=== PATIENT | male | born 1965 | race Caucasian/White ===

== ENCOUNTER 2018-05-24 17:09 | Emergency (ER) | payer OTHER, SELFPAY ==
[2018-05-24 17:28] VITALS: BP 188/105; PULSE 94; RESP 28; TEMP 37; O2SAT 96
--- NOTE | 2018-05-24 17:51 | DI.RAD_ITS ---
SYMPTOMS/DIAGNOSIS: BACK PAIN LUMBAR SPINE: AP, lateral and bilateral oblique views. There are five lumbar type vertebral bodies. There is normal alignment. No spondylolysis or spondylolisthesis is seen. Endplate osteophytes are present throughout the lumbar spine. The disc heights are well maintained. The bones are normally mineralized. IMPRESSION: No acute abnormality. Mild degenerative changes of the lumbar spine. THORACIC SPINE: AP and lateral views. The upper thoracic spine is not well visualized on the lateral view. It appears unremarkable on the AP view. There is normal alignment of the thoracic spine. Endplate osteophytes are present throughout the thoracic spine. No acute fractures or subluxations are seen. The paraspinal lines are unremarkable. IMPRESSION: No acute abnormality.
[2018-05-24] MEDS: Cyclobenzaprine 10 MG TAB PO (18:17)
--- NOTE | 2018-05-24 19:16 | NUR.NOTE ---
Change of shift report given to Netta Carpio RN and Daniel Shahid RN.Nursing Note:
--- NOTE | 2018-05-24 19:25 | ED.GENADUL_ITS ---
Discharge Plan Disposition Patient Disposition: HOME Condition: Improving Discharge Details Chief Complaint: Nk/Back Pain Clinical Impression: Back pain Primary Care Provider: Tania Salcedo ED Provider: Kevin Pollock Home Meds and New Rx's Prescriptions: New cyclobenzaprine 10 mg tablet 10 mg PO TID PRN (Reason: muscle spasm) Qty: 10 RF: 0 Millipred DP 5 mg (48 tabs) tablets,dose pack 5 mg PO .qd Qty: 48 RF: 0 No Action ibuprofen [Advil] 100 MG tablet,chewable 200 mg PO Q4H PRN RF: 0 aspirin [Aspirin Low-Strength] 81 MG tablet,chewable 81 mg PO DAILY RF: 0 omeprazole 20 MG capsule,delayed release(DR/EC) 20 mg PO DAILY Qty: 90 RF: 3 amlodipine [Norvasc] 2.5 MG tablet 2.5 mg PO BID Qty: 180 RF: 0 ibuprofen 800 MG tablet 800 mg PO TID Qty: 30 RF: 0 doxycycline hyclate [Doryx] 100 MG tablet,delayed release (DR/EC) 100 mg PO BID Qty: 14 RF: 0 albuterol sulfate [ProAir HFA] 200 PUFF HFA aerosol inhaler Inhalation Q4H PRN PRNQty: 2 RF: 0 metronidazole 500 MG tablet 500 mg PO BID Qty: 20 RF: 0 Discharge Instructions Instructions: Back Pain (ED) Additional Instructions: 1. Ice sore areas frequently. 2. Acetaminophen 1000 mg every 4 hours as needed for pain up to 5 times per day. 3. Cyclobenzaprine 10 mg 3 times a day as needed for muscle spasm. 4. Medrol Dosepak as directed. 5. Activity as tolerated Return for worsening pain, change in bowel or bladder habits, fever, abdominal pain, or any other concerns. Medical Decision Making 53-year-old gentleman with a history of previous trauma associated back pain presents with 1 week of worsening symptoms localized to his left paraspinal region and radiating towards his left posterior chest. Symptoms subjectively similar to remote pain associated with a trauma and he reports milder episodes in the interim. Nonfocal exam except for focal soft tissue paraspinal tenderness on the left side with no evidence of neuromuscular compromise distally. Treated in the ED with cyclobenzaprine and Medrol. Because of his age and new history of back pain, thoracic and lumbar x-rays were ordered which were nondiagnostic. Discharge home with a Medrol Dosepak and a prescription for limited cyclobenzaprine. Given usual and customary return instructions. Medical Records Medical records reviewed: Yes I reviewed the patient's medical records. Imaging Data Radiologic Study: Attestation: I personally reviewed and interpreted this imaging study as follows: Imaging: X-Ray My impression: Lumbar and thoracic spine x-rays negative for acute fracture or subluxation. Normal degenerative. Images reviewed independently and contemporaneously by myself. 53-year-old gentleman with a past medical history which includes remote back pain from trauma. He presents with 1 week of worsening left-sided paraspinal back pain which is worsened by positional change and palpation. First noted symptoms while working and has been intimately treating his pain with ibuprofen/acetaminophen. Yesterday, he had severe atraumatic worsening of his pain and today was unable to stand up without severe discomfort. His pain is localized to the left paraspinal region and radiates towards his chest wall. He denies radiation or weakness distally. Denies saddle anesthesia, change in bowel habits, or urinary incontinence. Symptoms subjectively similar to remote pain 20 years ago associated with a traumatic injury. He reports occasional flares of pain in the same region which have not been as severe. Also denies abdominal pain melena/hematochezia, or urinary symptoms. HPI General Date/Time Provider Initiated Documentation: 05/24/18 17:50 . Related Data Home Medications Medication Instructions Recorded Confirmed ibuprofen [Advil] 200 mg PO Q4H PRN tab-cap 11/24/13 03/23/16 aspirin [Aspirin Low-Strength] 81 mg PO DAILY tab-cap 01/03/15 03/23/16 ibuprofen 800 mg PO TID #30 tablet 01/06/15 03/23/16 amlodipine [Norvasc] 2.5 mg PO BID #180 tab-cap 02/02/15 omeprazole 20 mg PO DAILY #90 tab-cap 02/02/15 albuterol sulfate [ProAir HFA] 0 gm INHALATION Q4H PRN PRN #2 inh 04/08/15 03/23/16 doxycycline hyclate [Doryx] 100 mg PO BID #14 tabcr 04/08/15 metronidazole 500 mg PO BID #20 tab 03/23/16 cyclobenzaprine 10 mg PO TID PRN #10 tab 01/06/19 prednisolone [Millipred DP] 5 mg PO .qd #48 dose pk 05/24/18 Previous Rx's Medication Instructions Recorded ibuprofen 800 mg PO TID #30 tablet 01/06/15 albuterol sulfate [ProAir HFA] 0 gm INHALATION Q4H PRN PRN #2 inh 04/08/15 doxycycline hyclate [Doryx] 100 mg PO BID #14 tabcr 04/08/15 metronidazole 500 mg PO BID #20 tab 03/23/16 cyclobenzaprine 10 mg PO TID PRN #10 tab 05/24/18 prednisolone [Millipred DP] 5 mg PO .qd #48 dose pk 05/24/18 Allergies Allergy/AdvReac Type Severity Reaction Status Date / Time THC Allergy Severe ANAPHALAXIS Uncoded 05/24/18 17:42 HEMP Allergy Intermediate HIVES Uncoded 05/24/18 17:42 General Stated Complaint: Nk/Back Pain VANESSA: 4 Review of Systems Review of Systems All systems reviewed & are unremarkable except as noted in HPI and below Constitutional Denies excessive sweating and Denies fatigue Eyes Denies change in vision ENT Reports as per HPI, Denies dysphagia and Denies dizziness Cardiovascular Reports as per HPI, Denies chest pain and Denies dyspnea Respiratory Denies dyspnea Gastrointestinal Denies dysphagia Genitourinary Reports as per HPI, Denies oliguria and Denies difficulty urinating Musculoskeletal Reports as per HPI, Reports back pain (Left lumbar paraspinal radiating towards the chest wall) and Denies muscle weakness Neurologic Denies confusion and Denies dizziness Comments: No distal left leg numbness or weakness Psychiatric Reports as per HPI, Denies anxiety, Denies change in appetite and Denies confusion Endocrine Denies excessive sweating and Denies fatigue Hematologic/Lymphatic Denies easy bleeding and Denies easy bruising PFSH Medical History Insomnia Snoring Family History Mother Myocardial infarction Father Diabetes Other Heart disease Social History Smoking/Tobacco Use Status: Current every day Exam Const General: cooperative, comfortable and not in acute distress Orientation: alert and awake HENGA Head: normocephalic and atraumatic Eyes Conjunctivae: conjunctivae normal Sclera: sclerae normal Neck Neck: normal visual inspection and full ROM Resp Effort & Inspection: normal respiratory effort Auscultation: clear to auscultation bilaterally, no rales, no rhonchi and no wheezes Cardio Rate: regular rate Rhythm: regular rhythm Heart Sounds: S1 normal and S2 normal GI Palpation: soft, not rigid and nontender Back/Spine/Pelvis Back: back tenderness (No midline tenderness. Left paraspinal soft tissue.) Thoracic/Lumbar Spine: thoracic and lumbar spine normal to inspection, paraspinal tenderness (Left. Palpation reproduces subjective pain) and No lumbar spinal tenderness Skin Lesions: no lesions Rashes: no rashes Neuro General: alert and awake Speech: speech normal Motor: muscle tone normal throughout Extrem General: no edema Psych Mental Status: mental status grossly normal Speech and Movement: speech and movement normal Course Vital Signs Temperature 98.6 F 05/24/18 17:28 Pulse 94 H 05/24/18 17:28 Respiratory Rate 28 H 05/24/18 17:28 Blood Pressure 188/105 H 05/24/18 17:28 Pulse Oximetry 96 05/24/18 17:28 Temperature 98.6 F 05/24/18 17:28 Temperature Source Temporal Artery Scan 05/24/18 17:28 Pulse 94 H 05/24/18 17:28 Respiratory Rate 28 H 05/24/18 17:28 Respiratory Effort 05/24/18 17:50 Blood Pressure 188/105 H 05/24/18 17:28 Blood Pressure Position Sitting 05/24/18 17:28 Pulse Oximetry 96 05/24/18 17:28 Oxygen Delivery Method Room Air 05/24/18 17:28 Oxygen Flow Rate 0 05/24/18 17:28 Pain Level 10 05/24/18 17:44
--- NOTE | 2018-05-24 19:36 | DI.VRAD_ITS ---
EXAM: XR Thoracic Spine, 3 Views EXAM DATE/TIME: 05/24/2018 7:12 PM CLINICAL HISTORY: 53 years old, male; Pain; Pain in thoracic spine; Other: N/a; Patient HX: Low/mid back pain TECHNIQUE: XR of the thoracic spine, 3 views. COMPARISON: No relevant prior studies available. FINDINGS: Vertebrae: Hypertrophic degenerative changes in the thoracic spine with no fracture or subluxation. Upper thoracic spine not well-seen on the lateral view, normal on frontal imaging. Soft tissues: Normal. IMPRESSION: Hypertrophic degenerative changes in the thoracic spine with no fracture or subluxation. Dictated and Authenticated by: Sharri Lindsey MD. Ordering:NATHANIEL Brown MD
--- NOTE | 2018-05-24 19:37 | DI.VRAD_ITS ---
EXAM: XR Lumbar Spine, 4 or 5 Views EXAM DATE/TIME: 05/24/2018 5:53 PM CLINICAL HISTORY: 53 years old, male; Pain; Low back pain TECHNIQUE: XR of the lumbar spine, 4 or 5 views. COMPARISON: CT ABD PELVIS WO CONTRAST 03/23/2016 2:24 PM FINDINGS: Vertebrae: No acute fracture or subluxation. Hypertrophic degenerative changes in the lumbar spine. Mild disc space narrowing, L4-L5 and L5-S1. Soft tissues: Aortic atherosclerosis. IMPRESSION: No acute bony pathology. Dictated and Authenticated by: Sharri Lindsey MD. Ordering:NATHANIEL Brown MD
== END 2018-05-24 19:56 | disposition home or self-care (01) ==
PROVIDERS: Emergency Provider Emergency Medicine; PCP Nurse Practitioner
DX: M62.830 Muscle spasm of back (principal); M54.9 Dorsalgia, unspecified
CPT/HCPCS: 99284; 72072; 72110; 99283; J3490

== ENCOUNTER 2019-03-19 16:34 | Emergency (ER) | payer OTHER, SELFPAY ==
[2019-03-19] VITALS (13 sets, daily range): BP systolic 148–174; BP diastolic 78–112; PULSE 91–115; RESP 4–27; TEMP 36.5; O2SAT 92–97
--- NOTE | 2019-03-19 17:01 | ED.GENADUL_ITS ---
Discharge Plan Disposition Patient Disposition: HOME Condition: Improving Discharge Details Chief Complaint: Chest Pain Clinical Impression: Bronchitis, Dizziness, Accelerated hypertension, Atypical chest pain Primary Care Provider: None,None ED Provider: Gia Lamas Home Meds and New Rx's Prescriptions: New hydrochlorothiazide 12.5 mg tablet 12.5 mg PO DAILY 30 Days Qty: 30 RF: 0 prednisone 20 mg tablet See Rx Instructions .ROUTE .COMPLEX Qty: 12 RF: 0 doxycycline hyclate 100 mg tablet 100 mg PO BID 7 Days Qty: 14 RF: 0 albuterol sulfate 2.5 mg /3 mL (0.083 %) solution for nebulization 2.5 mg IH QID PRN (Reason: shortness of breath or wheezing) Qty: 75 RF: 0 Continued aspirin [Aspirin Low-Strength] 81 MG tablet,chewable 325 mg PO DAILY RF: 0 Discharge Instructions Instructions: Chest Pain (ED), Acute Bronchitis (ED), Hypertension (ED), Dizziness (ED) Additional Instructions: Use the albuterol inhaler as needed and directed. Use your albuterol solution and nebulizer as needed and directed. Take the steroids until finished. Take the blood pressure medication as directed. If your symptoms do not improve or worsen including fever, worsening cough and chest congestion, start the antibiotics. You will receive a call from care management regarding a follow-up appointment with your primary care doctor. Return immediately to the emergency department if you develop any worsening or new concerning symptoms. Discharge Data Discharge Physician: Gia Lamas Medical Decision Making 1650 -- 54-year-old male with history of anxiety, panic attacks, hypertension presenting with 1 week of intermittent elevated blood pressure, lightheadedness, shortness of breath and chest pain is worse with exertion. He states his BP was higher today than usual 200s over 100s. He states he had taken hydrochlorothiazide in the past but not recently. He complains of only some dizziness at present but denies any chest pain or shortness of breath. BP on arrival 174/112. Heart rate 115. Afebrile. Oxygen saturation 96% on room air. He appears nontoxic. He has scattered wheezing in the lower bases. EKG on arrival notes a rate of 105, sinus no acute ST ischemic changes. Differential diagnosis includes bronchitis, COPD, pneumonia, ACS. History presentation not consistent with dissection or PE, but considering some radiation of chest pain to back and smoking history, will obtain a CT chest. Will check screening labs and give DuoNeb and Solu-Medrol. 1830 --labs reviewed. White blood cell count 13. Remainder of labs unremarkable with negative troponin, normal BNP and electrolytes. Patient states he feels better, dizziness improved. BP improved to 152/77. Will give additional IV fluids. CT chest pending. 1904 --CT chest does not see a pulmonary embolism in the main pulmonary arteries but suboptimal bolus for full evaluation. No dissection or evidence of pneumonia. Discussed with patient that we can repeat CT at this time for further evaluation but he would rather go home as he does not feel that he has a pulmonary embolism. The risks of and disability were explained and he fully understands demonstrates capacity make decisions. He has a cough with green sputum and chest congestion with wheezing so suspect his main process is likely infectious associated with dehydration. Patient is requesting to go home. We will send home with albuterol inhaler, solution for his nebulizer at home, prednisone as well as to restart his hydrochlorothiazide which she had been taking last year. He denies any headache, blurry vision and had no focal deficits. He was also given a prescription for doxycycline if he had worsening symptoms or development of fever. He was placed on care management list to establish care and a follow-up appointment in 1 to 2 weeks. He was advised to return here immediately with any worsening or new concerning symptoms. Medical Records Medical records reviewed: Yes I reviewed the patient's medical records. Imaging Data Radiologic Study: Radiologist's impression: CT Angiography Chest With Contrast Exam date and time: 03/19/2019 6:22 PM Clinical history: 54 years old, male; Radiating; Patient HX: Chest pain w/ radiation to back; Additional info: R/O dissection/pe, pneumonia TECHNIQUE: Imaging protocol: Computed tomographic angiography of the chest with intravenous contrast. 3D rendering: MIP reconstructed images were created and reviewed. COMPARISON: CR CHEST 2 VIEWS PA,LAT 04/08/2015 4:02 PM FINDINGS: Pulmonary arteries: No pulmonary embolus in the main pulmonary arteries.. Aorta: No aneurysm of the aorta. No dissection of the aorta. Other veins: Suboptimal bolus for evaluation of pulmonary embolus. Contrast is primarily in the aortic arch and pulmonary veins. Lungs: Unremarkable. No consolidation. No masses. Pleural space: Unremarkable. No pneumothorax. No pleural effusion. Heart: Unremarkable. No cardiomegaly. No pericardial effusion. Lymph nodes: Unremarkable. No enlarged lymph nodes. Bones/joints: Unremarkable. No acute fracture. Soft tissues: Unremarkable. IMPRESSION: 1. Suboptimal bolus for evaluation of pulmonary embolus. Contrast is primarily in the aortic arch and pulmonary veins. 2. No pulmonary embolus in the main pulmonary arteries.. 3. No aneurysm of the aorta. 4. No dissection of the aorta. Lab Data Lab results reviewed: Yes I reviewed the patient's lab results. ECG Data Attestation: I personally reviewed and interpreted this ECG (s) as follows: Interpretation: Rate of 105, sinus with no acute ST elevation or depression. GA 198. QTc 455. QRS 104. HPI General Mode of arrival: ambulatory . Date/Time Provider Initiated Documentation: 03/19/19 16:34 . Limitations to Documentation: no limitations . Information obtained by: patient . HPI Narrative: Patient is a 54-year-old male with history of anxiety, panic attacks, hypertension, CVA and possible asthma who presents for intermittent lightheadedness, shortness of breath, chest pain and high blood pressure for the past week. He states his symptoms started after he did a lot of heavy outside work last weekend. He states with all that exertion, he felt lightheaded with substernal and right-sided chest pain and shortness of breath. He states the symptoms have mainly returned in the past week with exertion. He describes the chest pain is aching and 7/10 at its worst. He denies any chest pain or shortness of breath at this time. He states the dizziness is worse with movement which increases his heart rate. He states he is also had a dry cough with some chest congestion and green sputum. He states he has been eating normally and denies any fever, leg pain or swelling, recent travel or recent surgeries. Related Data Home Medications Medication Instructions Recorded Confirmed aspirin [Aspirin Low-Strength] 325 mg PO DAILY tab-cap 01/03/15 03/19/19 albuterol sulfate 2.5 mg IH QID PRN #75 ml 03/19/19 doxycycline hyclate 100 mg PO BID 7 Days #14 tab 03/19/19 hydrochlorothiazide 12.5 mg PO DAILY 30 Days #30 tab 03/19/19 prednisone See Rx Instructions .ROUTE 03/19/19 .COMPLEX #12 tab Previous Rx's Medication Instructions Recorded albuterol sulfate 2.5 mg IH QID PRN #75 ml 03/19/19 doxycycline hyclate 100 mg PO BID 7 Days #14 tab 03/19/19 hydrochlorothiazide 12.5 mg PO DAILY 30 Days #30 tab 03/19/19 prednisone See Rx Instructions .ROUTE 03/19/19 .COMPLEX #12 tab Allergies Allergy/AdvReac Type Severity Reaction Status Date / Time THC Allergy Severe ANAPHALAXIS Uncoded 03/19/19 16:51 HEMP Allergy Intermediate HIVES Uncoded 03/19/19 16:51 General Stated Complaint: Chest Pain VANESSA: 2 Review of Systems All systems reviewed & are unremarkable except as noted in HPI and below Constitutional Constitutional: Reports as per HPI, Denies chills and Denies fever(s) Eyes Eyes: Denies blurry vision ENT Ears, Nose, Mouth, and Throat: Reports dizziness, Denies sore throat and Denies throat swelling Cardiovascular Cardiovascular: Reports chest pain and Reports dyspnea Respiratory Respiratory: Reports cough and Reports dyspnea Gastrointestinal Gastrointestinal: Denies abdominal pain, Denies diarrhea and Denies vomiting Genitourinary Genitourinary: Denies hematuria and Denies dysuria Musculoskeletal Musculoskeletal: Denies back pain and Denies numbness Integumentary/Breasts Skin/Breast: Denies lesions and Denies rash Neurologic Neurologic: Reports dizziness, Denies focal weakness and Denies numbness Allergic/Immunologic Allergic/Immunologic: Denies throat swelling [facility] Medical History Anxiety (Chronic) Cerebral thrombosis (Acute 11/29/13) GERD (gastroesophageal reflux disease) (Acute 12/21/14) Hypertension (Acute 12/21/14) Insomnia Obesity (Acute 12/21/14) Panic attack (Acute) Snoring Surgical History H/O hand surgery (Acute) History of oral surgery (Acute) 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 Family History Mother Myocardial infarction Father Diabetes Other Heart disease Social History Smoking/Tobacco Use Status: Current every day Tobacco Type: cigarettes Smoking packs per day: 2 Smoking cigarettes per day: 40.0 Alcohol Intake: never Drug use: Never Do you feel safe in your relationship?: Yes Exam Const General: cooperative and no acute distress Nutritional Appearance: obese morbidly obese [facility] Head: normal to inspection Face and sinus: normal facial exam Eyes General: appearance normal, both eyes and all related structures Pupils: PERRL EOM: EOM intact bilaterally Neck Neck: normal visual inspection and No submandibular swelling Lymphatic: no lymphadenopathy noted Chest Chest: normal inspection of the chest and no tenderness Resp Effort & Inspection: normal respiratory effort and able to speak in complete sentences Auscultation: wheezes scattered wheezes (at bases b/l, more on R side) Cardio Rate: regular rate Rhythm: regular rhythm GI Inspection: normal to inspection and obesity Palpation: soft, not firm, not rigid and nontender Auscultation: normal bowel sounds Back/Spine/Pelvis Pelvis: no pain with anterior-posterior compression Skin General skin exam: no rashes or lesions noted Neuro General: alert, awake and oriented x3 Cognition: normal cognition Speech: speech normal Motor: muscle tone normal throughout Sensory Exam: no sensory deficits noted Extrem General: normal to inspection, full ROM, normal capillary refill, no calf tenderness bilaterally and no edema Psych Appearance: grossly normal Mental Status: mental status grossly normal Speech and Movement: speech and movement normal Affect: normal affect Course Vital Signs Vital signs: Vital Signs Pulse 115 H 03/19/19 16:38 Respiratory Rate 18 03/19/19 16:38 Blood Pressure 174/112 H 03/19/19 16:38 Pulse Oximetry 96 03/19/19 16:38 Temperature Source Temporal Artery Scan 03/19/19 16:38 Pulse 115 H 03/19/19 16:38 Respiratory Rate 20 03/19/19 16:43 Respiratory Effort 03/19/19 16:43 Respiratory Depth Normal 03/19/19 16:43 Respiratory Pattern Normal 03/19/19 16:43 Blood Pressure 174/112 H 03/19/19 16:38 Blood Pressure Position Sitting 03/19/19 16:38 Pulse Oximetry 96 03/19/19 16:38 Oxygen Delivery Method Room Air 03/19/19 16:38 Oxygen Flow Rate 0 03/19/19 16:38 Pain Level 7 03/19/19 16:43
--- NOTE | 2019-03-19 17:19 | DI.CT_ITS ---
EXAM: CT CHEST PE CTA CLINICAL HISTORY: chest pain w/ radiation to back, r/o dissection/PE TECHNIQUE: After IV contrast. The contrast bolus timing is suboptimal. Axial CT angiography was performed with multi-slice acquisition and multi-planar and/or 3D reconstruc tions. COMPARISON: ABD PELVIS WO CONTRAST from 03/23/2016 FINDINGS: The pulmonary arteries are suboptimally opacified. No large central pulmonary emboli are seen. There are no pleural or pericardial effusions or evidence of an infiltrate. There is no pneumothorax or th oracic compression fracture. Prominent osteophytes are noted in the thoracic spine. Coronary artery c alcifications are seen. IMPRESSION: Suboptimal contrast bolus timing. No large central pulmonary artery emboli are seen. There is no evid ence of aortic dissection.
[2019-03-19] MEDS: Albuterol/Ipratropium 3 ML UPD VIAL UPD (17:27)
[2019-03-19] MEDS: methylPREDNISolone SUCC 125 MG VIAL IVP (17:27)
[2019-03-19] MEDS: Normal Saline 250 ML IV (17:34)
[2019-03-19 17:51] LABS: ALT 58 U/L (16-63); AST 27 U/L (15-37); Albumin 3.8 g/dL (3.4-5.0); Alkaline Phosphatase 93 U/L (46-116); BUN 12 mg/dL (7-18); Bilirubin, Total 0.4 mg/dL (0.2-1.0); CREATININE 0.96 mg/dL (0.70-1.30); Calcium 8.9 mg/dL (8.5-10.1); Chloride 103 mmol/L (98-107); Glucose 162 mg/dL (70-100); Magnesium 2.1 mg/dL (1.8-2.4); NT-proBNP 59 pg/mL; Potassium 3.7 mmol/L (3.5-5.1); Sodium 139 mmol/L (136-145); Total Protein 7.8 g/dL (6.4-8.2)
[2019-03-19 17:55] LABS: Troponin I < 0.05 ng/mL (0.00-0.06)
[2019-03-19 18:07] LABS: Abs Immature Grans 0.04 k/cumm (0.0-0.09); Absolute Basophil Count 0.04 k/cumm (0.0-0.2); Absolute Lymphocyte Count 2.49 k/cumm (1.2-3.4); Absolute Monocyte Count 0.95 k/cumm (0.11-0.7); Absolute Neutrophil Count 9.57 k/cumm (1.2-6.7); Basophils % 0.3; Eosinophils % 0.5; HCT 49.3 % (40.0-50.0); HGB 17.2 g/dL (13.5-17.5); Immature Grans % 0.3; Lymphocytes % 18.9; Mean Corp. HGB Concentration 34.9 g/dL (32.0-36.0); Mean Corpuscular Hemoglobin 30.3 pg (27.0-33.0); Mean Corpuscular Volume 86.8 fL (80-95); Mean Platelet Volume 10.2 fL (8.0-11.0); Monocytes % 7.2; Neutrophils % 72.8; Platelet Count 288 x1000/uL (130-400); RBC 5.68 m/cumm (4.50-6.00); RBC Distribution Width 13.5 % (11.8-14.1); White Blood Cell Count 13.15 k/cumm (4.4-10.8)
[2019-03-19 18:12] LABS: Absolute Eosinophil Count 0.07 k/cumm (0.0-0.7)
[2019-03-19] MEDS: Omnipaque 350 MG/ML 100 ML BTL IJ (18:14)
--- NOTE | 2019-03-19 18:57 | DI.VRAD_ITS ---
PROCEDURE INFORMATION: Exam: CT Angiography Chest With Contrast Exam date and time: 03/19/2019 6:22 PM Clinical history: 54 years old, male; Radiating; Patient HX: Chest pain w/ radiation to back; Additional info: R/O dissection/pe, pneumonia TECHNIQUE: Imaging protocol: Computed tomographic angiography of the chest with intravenous contrast. 3D rendering: MIP reconstructed images were created and reviewed. COMPARISON: CR CHEST 2 VIEWS PA,LAT 04/08/2015 4:02 PM FINDINGS: Pulmonary arteries: No pulmonary embolus in the main pulmonary arteries.. Aorta: No aneurysm of the aorta. No dissection of the aorta. Other veins: Suboptimal bolus for evaluation of pulmonary embolus. Contrast is primarily in the aortic arch and pulmonary veins. Lungs: Unremarkable. No consolidation. No masses. Pleural space: Unremarkable. No pneumothorax. No pleural effusion. Heart: Unremarkable. No cardiomegaly. No pericardial effusion. Lymph nodes: Unremarkable. No enlarged lymph nodes. Bones/joints: Unremarkable. No acute fracture. Soft tissues: Unremarkable. IMPRESSION: 1. Suboptimal bolus for evaluation of pulmonary embolus. Contrast is primarily in the aortic arch and pulmonary veins. 2. No pulmonary embolus in the main pulmonary arteries.. 3. No aneurysm of the aorta. 4. No dissection of the aorta. Dictated and Authenticated by: Xiomara Quarles MD. Ordering:DIANA Nielsen MD
[2019-03-19] MEDS: Albuterol HFA 8 GM 60 PUFF INH IH (20:07)
--- NOTE | 2019-03-19 20:13 | NUR.NOTE ---
IV removed. Discharge instructions reviewed with verbal understanding. aware to f/u with pcp as needed. Scripts given. ambulated to exit with steady gait.
== END 2019-03-19 20:15 | disposition home or self-care (01) ==
PROVIDERS: Emergency Provider Physician Assistant
DX: J20.9 Acute bronchitis, unspecified (principal); R42 Dizziness and giddiness; R07.9 Chest pain, unspecified; I10 Essential (primary) hypertension
CPT/HCPCS: 36415; 71275; 80053; 93005; 94640; 96361; 96374; 99285; 83735; 83880; 84484; 85025; 93010; J2930; J3490; J7620

== ENCOUNTER 2020-08-30 21:40 | Emergency (ER) | payer BC, SELFPAY ==
[2020-08-30] VITALS (9 sets, daily range): BP systolic 131–188; BP diastolic 77–100; PULSE 101–117; RESP 18–23; TEMP 36.8; O2SAT 94–96
--- NOTE | 2020-08-30 21:30 | RT.EKG_ITS ---
APPROVED REPORT Exam: Resting ECG Patient Location: E HR:121 bpm ECG Measurements Heart Rate 121 AXIS OH 150 P -10 QRSd 99 QRS 44 QT 306 T [id number] QTc 434 Conclusion Sinus tachycardia...rate> 99 I have reviewed and interpreted ECG and agree with software generated interpretation.
--- NOTE | 2020-08-30 21:45 | DI.RAD_ITS ---
EXAM: XR CHEST 2V PA LATERAL CLINICAL HISTORY: pain. TECHNIQUE: 2D digital imaging was performed. COMPARISON: In FINDINGS: Heart size is normal. The mediastinum is not widened. Lungs are clear. No infiltrates nor pleural effusions. IMPRESSION: No acute pulmonary findings. DATA REPOSITORY: RADIATION DOSE DELIVERED:
--- NOTE | 2020-08-30 21:58 | ED.GENADUL_ITS ---
Discharge Plan Disposition Patient Disposition: STILL A PATIENT Condition: Stable Discharge Details Clinical Impression: Chest pain, Hyperglycemia Primary Care Provider: None,None ED Provider: Lawrence Larkin Home Meds and New Rx's Prescriptions: No Action aspirin [Aspirin Low-Strength] 81 MG tablet,chewable 650 mg PO DAILY RF: 0 ibuprofen 200 mg Tablet 600 mg PO PRN PRNRF: 0 prednisone 20 mg tablet See Rx Instructions .ROUTE .COMPLEX Qty: 12 RF: 0 albuterol sulfate 2.5 mg /3 mL (0.083 %) solution for nebulization 2.5 mg IH QID PRN (Reason: shortness of breath or wheezing) Qty: 75 RF: 0 Medical Decision Making 55-year-old gentleman, past medical history of anxiety, GERD, hypertension, obesity, anxiety, cerebral thrombosis, presents anterior chest pain worse on the right side that radiates to his shoulder has been ongoing for the past 4 hours. Nothing makes it worse or better. No additional concerns or complaints. No other symptoms. This began without exertion. Patient reports many similar episodes in work-up including a negative stress test 2-3 years ago. Clinically he appears slightly anxious, tachycardia in the low 100s. Mildly hypertensive. Patient has not taken any of his medications over a month and a half. Continues to smoke 2 packs of cigarettes daily. Will initiate a cardiac work-up including a D-dimer. Patient already took 2 full-strength aspirin today. Initial laboratory values reveal mild nonspecific leukocytosis, D-dimer elevated at 680, glucose of 444. Patient receiving 1 L IV fluid. Now after his initial laboratory values are back we will give 30 IV Toradol, 1 mg IV Ativan, and will obtain CTA of his chest given his elevated D-dimer. Most recent heart rate was 106 Awaiting CTA. Patient agreeable to repeat troponin and EKG at the 3-hour timeframe. Heart score of 3, patient falls into the low score At time of signout to Dr. Dutta, awaiting CTA, repeat troponin and EKG. Patient is currently being medicated with IV fluid, Ativan, Toradol, will need to reassess Medical Records Medical records reviewed: Yes I reviewed the patient's medical records. Imaging Data Radiologic Study: Attestation: I personally reviewed and interpreted this imaging study as follows: Imaging: X-Ray Radiologist's impression: Chest x-ray negative Lab Data Lab results reviewed: Yes I reviewed the patient's lab results. Lab results narrative: Laboratory Tests Range/Units 08/30/20 08/30/20 08/30/20 22:00 22:00 22:00 WBC (4.4-10.8) 10^3/uL 12.34 H RBC (4.36-5.78) 10^6/uL 5.74 Hgb (13.5-17.5) g/dL 17.1 Hct (40.0-50.0) % 49.2 MCV (80-95) fL 85.7 MCH (27.0-33.0) pg 29.8 MCHC (32.0-36.0) % 34.8 RDW (11.8-14.1) % 12.7 Plt Count (130-400) 10^3/uL 209 MPV (8.0-11.0) fL 10.3 Immature Gran % 0.5 Neutrophils % 74.3 Lymphocytes % 16.5 Monocytes % 6.6 Eosinophils % 1.5 Basophils % 0.6 Nucleated RBC % % 0 Absolute Neutrophils (1.2-6.7) 10^3/uL 9.17 H Absolute Lymphocytes (1.2-3.4) 10^3/uL 2.04 Absolute Monocytes (0.1-0.8) 10^3/uL 0.81 H Absolute Eosinophils (0.0-0.7) 10^3/uL 0.19 Absolute Basophils (0.0-0.2) 10^3/uL 0.07 PT (9.3-11.0) sec 9.5 INR (0.9-1.1) 0.9 APTT (21.0-27.5) sec 23.2 D-Dimer (<500) ng/mlFEU 680 H Sodium (136-145) mmol/L Potassium (3.5-5.1) mmol/L Chloride (98-107) mmol/L Carbon Dioxide (21.0-32.0) mmol/L Anion Gap (3-11) mmol/L BUN (7-18) mg/dL Creatinine (0.70-1.30) mg/dL Estimated GFR/1.73 m2 (mL/min/1.73m2) Glucose (74-106) mg/dL Calcium (8.5-10.1) mg/dL Magnesium (1.8-2.4) mg/dL Total Bilirubin (0.2-1.0) mg/dL AST (15-37) U/L ALT (16-63) U/L Alkaline Phosphatase (46-116) U/L Troponin I (<0.06) ng/mL Total Protein (6.4-8.2) g/dL Albumin (3.4-5.0) g/dL Range/Units 08/30/20 22:30 WBC (4.4-10.8) 10^3/uL RBC (4.36-5.78) 10^6/uL Hgb (13.5-17.5) g/dL Hct (40.0-50.0) % MCV (80-95) fL MCH (27.0-33.0) pg MCHC (32.0-36.0) % RDW (11.8-14.1) % Plt Count (130-400) 10^3/uL MPV (8.0-11.0) fL Immature Gran % Neutrophils % Lymphocytes % Monocytes % Eosinophils % Basophils % Nucleated RBC % % Absolute Neutrophils (1.2-6.7) 10^3/uL Absolute Lymphocytes (1.2-3.4) 10^3/uL Absolute Monocytes (0.1-0.8) 10^3/uL Absolute Eosinophils (0.0-0.7) 10^3/uL Absolute Basophils (0.0-0.2) 10^3/uL PT (9.3-11.0) sec INR (0.9-1.1) APTT (21.0-27.5) sec D-Dimer (<500) ng/mlFEU Sodium (136-145) mmol/L 137 Potassium (3.5-5.1) mmol/L 4.2 Chloride (98-107) mmol/L 101 Carbon Dioxide (21.0-32.0) mmol/L 27.3 Anion Gap (3-11) mmol/L 8.7 BUN (7-18) mg/dL 12 Creatinine (0.70-1.30) mg/dL 1.0 Estimated GFR/1.73 m2 (mL/min/1.73m2) >= 60.00 Glucose (74-106) mg/dL 444 H Calcium (8.5-10.1) mg/dL 9.3 Magnesium (1.8-2.4) mg/dL 1.9 Total Bilirubin (0.2-1.0) mg/dL 0.3 AST (15-37) U/L 32 ALT (16-63) U/L 85 H Alkaline Phosphatase (46-116) U/L 144 H Troponin I (<0.06) ng/mL < 0.05 Total Protein (6.4-8.2) g/dL 7.2 Albumin (3.4-5.0) g/dL 3.4 ECG Data Attestation: I personally reviewed and interpreted this ECG (s) as follows: Interpretation: Please see official report by Dr. Lamas. Sinus tachycardia, ventricular of 121. HPI General Mode of arrival: ambulatory . Date/Time Provider Initiated Documentation: 08/30/20 21:42 . Limitations to Documentation: no limitations . Information obtained by: patient . HPI Narrative: This is a 55-year-old gentleman, past medical history of morbid obesity, hypertension, GERD, anxiety, presented to the ER today for what he describes as 4 hours of 4 out of 10 right- sided chest pain that radiates to his right shoulder. He states the pain is actually across his entire chest but more so on the right side. Nothing makes the pain worse or better. He was just lying down when the pain began. He states that he has not had any of his medications in at least 1-1/2 months. He smokes 2 packs of cigarettes daily. He denies recent illness or trauma. Denies headache, shortness of breath, back pain, abdominal pain, nausea, vomiting, numbness, tingling, weakness, pain or swelling in his legs, change of bowel or bladder habit. Patient reports that he has had similar symptoms multiple times with multiple work-ups, last included a stress test 2-3 years ago which was normal. Patient report a history of anxiety, but does not feel as though this is his anxiety. He took 2 full-strength aspirin before coming to the ER. Upon arrival he is requesting something to drink Related Data Home Medications Medication Instructions Recorded Confirmed aspirin [Aspirin Low-Strength] 650 mg PO DAILY tab-cap 01/03/15 08/30/20 albuterol sulfate 2.5 mg IH QID PRN #75 ml 03/19/19 prednisone See Rx Instructions .ROUTE 03/19/19 .COMPLEX #12 tab ibuprofen 600 mg PO PRN PRN 08/30/20 08/30/20 Previous Rx's Medication Instructions Recorded albuterol sulfate 2.5 mg IH QID PRN #75 ml 03/19/19 prednisone See Rx Instructions .ROUTE 03/19/19 .COMPLEX #12 tab Allergies Allergy/AdvReac Type Severity Reaction Status Date / Time THC Allergy Severe ANAPHALAXIS Uncoded 03/19/19 16:51 HEMP Allergy Intermediate HIVES Uncoded 03/19/19 16:51 General Stated Complaint: Chest Pain VANESSA: 2 Review of Systems Constitutional Constitutional: Denies fatigue, Denies fever(s), Denies headache(s) and Denies weakness Eyes Eyes: Denies change in vision ENT Ears, Nose, Mouth, and Throat: Denies headache(s) and Denies neck pain Cardiovascular Cardiovascular: Reports chest pain and Denies dyspnea Respiratory Respiratory: Denies cough and Denies dyspnea Gastrointestinal Gastrointestinal: Denies abdominal pain, Denies nausea and Denies vomiting Genitourinary Genitourinary: Denies dysuria Musculoskeletal Musculoskeletal: Denies neck pain, Denies numbness and Denies tingling Integumentary/Breasts Skin/Breast: Denies rash Neurologic Neurologic: Denies headache(s), Denies numbness, Denies tingling and Denies weakness Psychiatric Psychiatric: Reports anxiety Endocrine Endocrine: Denies fatigue [facility] Medical History (Updated 08/30/20 @ 23:36 by BETH Jaime) Anxiety Cerebral thrombosis (11/29/13) GERD (gastroesophageal reflux disease) (12/21/14) Hypertension (12/21/14) Insomnia Obesity (12/21/14) Panic attack Snoring Surgical History H/O hand surgery History of oral surgery 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 Family History Mother Myocardial infarction Father Diabetes Other Heart disease Social History Smoking/Tobacco Use Status: Current every day Tobacco Type: cigarettes Smoking packs per day: 2 Smoking cigarettes per day: 40.0 Smoking risk assessment performed?: Yes Alcohol Intake: current Alcohol Intake frequency: holidays/special occasions only Drug use: Never Substance use type: does not use Do you feel safe at home: Yes Do you feel safe in your relationship?: Yes Exam Const General: cooperative, comfortable and no acute distress Orientation: alert, awake and oriented x3 [facility]: normal to inspection, normocephalic and atraumatic Face and sinus: normal facial exam Mouth: moist mucous membranes Eyes General: appearance normal, both eyes and all related structures Conjunctivae: conjunctivae normal Neck Neck: normal visual inspection, full ROM, trachea midline, supple and nontender Chest Chest: normal inspection of the chest and normal palpation of entire chest wall Resp Effort & Inspection: normal respiratory effort and able to speak in complete sentences Auscultation: clear to auscultation bilaterally Cardio Rate: tachycardic (112) Rhythm: regular rhythm GI Inspection: obesity Palpation: soft, not firm, no guarding and nontender Auscultation: normal bowel sounds Back/Spine/Pelvis Back: No back tenderness Skin General skin exam: no rashes or lesions noted Neuro General: patient alert, patient awake, patient oriented x3, moves all extremities and no focal motor deficits Cognition: normal cognition Speech: speech normal Gait: normal gait Motor: muscle tone normal throughout Sensory Exam: no sensory deficits noted Extrem General: normal to inspection, full ROM, capillary refill normal, no pedal edema and no calf tenderness Psych Appearance: grossly normal Mental Status: mental status grossly normal Course Vital Signs Vital signs: Vital Signs Temperature 36.8 C 08/30/20 21:44 Pulse 117 H 08/30/20 21:44 Respiratory Rate 08/30/20 21:44 Blood Pressure 162/86 H 08/30/20 21:44 Pulse Oximetry 96 08/30/20 21:44 Temperature 36.8 C 08/30/20 21:44 Temperature Source Skin 08/30/20 21:44 Pulse 117 H 08/30/20 21:44 Respiratory Rate 08/30/20 21:44 Blood Pressure 162/86 H 08/30/20 21:44 Pulse Oximetry 96 08/30/20 21:44 Oxygen Delivery Method Room Air 08/30/20 21:44 Oxygen Flow Rate 0 08/30/20 21:44
[2020-08-30 22:09] LABS: Abs Immature Grans 0.06 10^3/uL (0.0-0.06); Absolute Basophil Count 0.07 10^3/uL (0.0-0.2); Absolute Eosinophil Count 0.19 10^3/uL (0.0-0.7); Absolute Lymphocyte Count 2.04 10^3/uL (1.2-3.4); Absolute Monocyte Count 0.81 10^3/uL (0.1-0.8); Absolute Neutrophil Count 9.17 10^3/uL (1.2-6.7); Basophils % 0.6; Eosinophils % 1.5; HCT 49.2 % (40.0-50.0); HGB 17.1 g/dL (13.5-17.5); Immature Grans % 0.5; Lymphocytes % 16.5; MCH 29.8 pg (27.0-33.0); MCHC 34.8 % (32.0-36.0); MCV 85.7 fL (80-95); MPV 10.3 fL (8.0-11.0); Monocytes % 6.6; Neutrophils % 74.3; Nucleated RBC 0 %; Platelet Count 209 10^3/uL (130-400); RBC 5.74 10^6/uL (4.36-5.78); RDW 12.7 % (11.8-14.1); RDW-SD 39.2 fL; WBC 12.34 10^3/uL (4.4-10.8)
[2020-08-30 22:29] LABS: INR 0.9 (0.9-1.1); PTT Activated 23.2 sec (21.0-27.5); Prothrombin Time 9.5 sec (9.3-11.0)
[2020-08-30 22:43] LABS: D-Dimer 680 ng/mlFEU (<500)
[2020-08-30 23:04] LABS: ALT 85 U/L (16-63); AST 32 U/L (15-37); Albumin 3.4 g/dL (3.4-5.0); Alkaline Phosphatase 144 U/L (46-116); Anion Gap 8.7 mmol/L (3-11); BUN 12 mg/dL (7-18); Bilirubin, Total 0.3 mg/dL (0.2-1.0); CO2 27.3 mmol/L (21.0-32.0); Calcium 9.3 mg/dL (8.5-10.1); Chloride 101 mmol/L (98-107); Glucose 444 mg/dL (74-106); Magnesium 1.9 mg/dL (1.8-2.4); Potassium 4.2 mmol/L (3.5-5.1); Sodium 137 mmol/L (136-145); Total Protein 7.2 g/dL (6.4-8.2); Troponin I < 0.05 ng/mL (<0.06)
--- NOTE | 2020-08-30 23:06 | DI.VRAD_ITS ---
PROCEDURE INFORMATION: Exam: XR Chest Exam date and time: 08/30/2020 9:58 PM Age: 55 years old Clinical indication: Chest pain; Type not specified TECHNIQUE: Imaging protocol: XR of the chest. Views: 2 views. COMPARISON: CT CHEST PE CTA 03/19/2019 6:02 PM FINDINGS: Lungs: Clear lungs. Pleural spaces: No pneumothorax. No sizable pleural effusion. Heart/Mediastinum: No cardiomegaly. Bones/joints: Unremarkable. IMPRESSION: Clear lungs. Dictated and Authenticated by: Reggie Hernandez MD. Ordering:NIYAH Bravo MD
[2020-08-30] MEDS: LORazepam 2 MG/ML VIAL 1 MG IVP (23:37)
[2020-08-30] MEDS: Ketorolac 30 MG/ML VIAL IVP (23:38)
--- NOTE | 2020-08-30 23:57 | DI.CT_ITS ---
EXAM: CT CHEST PE CTA CLINICAL HISTORY: R sided CP, elevated dimer, tachy. TECHNIQUE: Imaging Protocol: CT angiography of the chest was performed using pulmonary embolus rosamaria col. Multi planar reconstructions were performed. CONTRAST MATERIAL: Intravenous: Omnipaque 350 Contrast volume: 100 cc COMPARISON: CT CT CHEST PE CTA from 03/19/2019 FINDINGS: CHEST: PULMONARY ARTERIES: There are no intraluminal filling defects to suggest acute pulmonary emboli. LUNGS: There are no infiltrates nor evidence of pulmonary infarction.. There are no pleural effusions . MEDIASTINUM: There is no hilar nor mediastinal adenopathy. Visualized thyroid unremarkable. CARDIAC: Heart size is upper normal. There is no pericardial effusion.Caliber of the thoracic aorta is within normal limits. There is no significant shift of the interventricular septum. PARTIALLY VISUALIZED UPPERMOST ABDOMEN: Liver appears slightly enlarged and steatotic. No ascites. No adrenal masses. OSSEOUS: No significant osseous lesions.. IMPRESSION: 1. No evidence of acute pulmonary emboli. No evidence of pulmonary infarction.No pleural effusions. RADIATION DOSE DELIVERED: 850.37mGy.cm Total DLP DATA REPOSITORY: All CT scans at this facility are submitted to the National Radiology Data Registry (NRDR) Dose Index Registry (DIR) with the [employer] (ACR). RADIATION OPTIMIZATION: All CT scans at this facility use at least one of these dose optimization te chniques: automated exposure control; mA and/or kV adjustment per patient size (includes targeted exa ms where dose is matched to clinical indication); or iterative reconstruction.
[2020-08-31] MEDS: Normal Saline Flush 10 ML SYR IVP (00:19)
[2020-08-31] MEDS: Normal Saline - Diluent 50 ML VIAL IV (00:20)
[2020-08-31] MEDS: Normal Saline 1,000 ML 1000 ML IV (00:31)
--- NOTE | 2020-08-31 00:48 | DI.VRAD_ITS ---
PROCEDURE INFORMATION: Exam: CTA Chest With Contrast Exam date and time: 08/30/2020 11:57 PM Age: 55 years old Clinical indication: Right-sided chest pain; Patient HX: RT sided chest pain, elevated d-dimer TECHNIQUE: Imaging protocol: Computed tomographic angiography of the chest with contrast. 3D rendering (Not supervised by radiologist): MIP and/or 3D reconstructed images were created by the technologist. Radiation optimization: All CT scans at this facility use at least one of these dose optimization techniques: automated exposure control; mA and/or kV adjustment per patient size (includes targeted exams where dose is matched to clinical indication); or iterative reconstruction. Contrast material: [id number]; Contrast volume: 90 ml; Contrast route: INTRAVENOUS (IV); COMPARISON: CT CHEST PE CTA 03/19/2019 6:02 PM FINDINGS: Pulmonary arteries: The pulmonary arteries are normal in caliber. No evidence of acute pulmonary embolism. Aorta: The aorta is normal without evidence of aneurysmal dilatation, dissection or occlusive disease. Lungs: There is no evidence of focal pulmonary consolidation. No evidence of pulmonary parenchymal inflammatory changes. There is no evidence of pulmonary masses. Pleural spaces: There is no evidence of pneumothorax. There are no pleural effusions present. Heart: The cardiac structures are normal. Mediastinal space: The mediastinal structures are normal. Lymph nodes: There is no evidence of lymphadenopathy. Liver: There is a diffuse decrease in hepatic parenchymal density, consistent with mild fatty infiltration. The liver is borderline enlarged. There may be early changes of cirrhosis. Pancreas: The remaining upper abdominal viscera are unremarkable. There is mild pancreatic atrophy present. Spleen: The spleen is enlarged. Bones/joints: The spine, sternum, ribs, and pectoral girdles show no evidence of acute abnormality. There are diffuse enthesopathic changes consistent with benign diffuse idiopathic skeletal hyperostosis (DISH). There are moderate degenerative changes of the thoracic and thoracolumbar spine. Soft tissues: There are no soft tissue masses or fluid collections. IMPRESSION: 1. No evidence of acute pulmonary embolism. 2. Hepatic steatosis. 3. Possible early cirrhosis with hepatosplenomegaly Dictated and Authenticated by: Jass Raines MD. Ordering:NIYAH Bravo MD
--- NOTE | 2020-08-31 01:15 | RT.EKG_ITS ---
APPROVED REPORT Exam: Resting ECG Patient Location: E HR:92 bpm ECG Measurements Heart Rate 92 AXIS SC 218 P 44 QRSd 107 QRS 33 QT 361 T 24 QTc 447 Conclusion Sinus rhythm...normal P axis, V-rate 60- 99 Prolonged SC interval...SC >205, V-rate 91-[address] [place] [address] Acute ST Changes There are no significant changes compared to prior EKG performed on 08/30/2020 at 21:49.
[2020-08-31 01:30] VITALS: PULSE 94; RESP 18; O2SAT 95
[2020-08-31 01:52] LABS: Troponin I < 0.05 ng/mL (<0.06)
[2020-08-31 02:29] VITALS: BP 146/88; PULSE 93; RESP 18; TEMP 37.1; O2SAT 95
--- NOTE | 2020-08-31 02:36 | NUR.NOTE ---
Put referral in the [facility] box to establish a PCP.Nursing Note:
== END 2020-08-31 02:21 | disposition home or self-care (01) ==
PROVIDERS: Physician Assistant; Emergency Provider Emergency Medicine
DX: R07.89 Other chest pain (principal); R73.9 Hyperglycemia, unspecified; R79.1 Abnormal coagulation profile; Z91.14 Patient's other noncompliance with medication regimen
CPT/HCPCS: 36415; 71275; 80053; 93005; 96361; 96374; 96375; 99285; 71046; 83735; 84484; 85025; 85379; 85610; 85730; 93010; J1885; J2060

== ENCOUNTER 2021-08-25 13:53 | Emergency (ER) | payer BC, SELFPAY ==
[2021-08-25] VITALS (39 sets, daily range): BP systolic 101–185; BP diastolic 63–95; PULSE 79–163; RESP 11–24; TEMP 36.6–36.7; O2SAT 92–97
--- NOTE | 2021-08-25 13:45 | RT.EKG_ITS ---
APPROVED REPORT Exam: Resting ECG Reason for Exam: Cp,SOB,lightheadedness Patient Location: E HR:98 bpm ECG Measurements Heart Rate 98 AXIS PA 192 P 49 QRSd 104 QRS 19 QT 354 T 13 QTc 453 Conclusion Sinus rhythm...normal P axis, V-rate 60- 99. Sinus. Normal axis. No STEMI. I have reviewed and interpreted ECG and agree with software generated interpretation.
--- NOTE | 2021-08-25 14:03 | W.ED.GENAD ---
Discharge Plan Disposition Patient Disposition: HOME Condition: Stable Discharge Details Clinical Impression: Palpitations, Chest pain, Shortness of breath Primary Care Provider: None,None ED Provider: Gia Lamas Home Meds and New Rx's Prescriptions: Continued aspirin [Aspirin Low-Strength] 81 MG tablet,chewable 81 mg PO DAILY 0RF ibuprofen 200 mg Tablet 600 mg PO PRN PRN0RF metformin 500 mg tablet 500 mg PO BID 0RF Label Comments: TAKE ONE TABLET BY MOUTH TWO TIMES A DAY lisinopril 10 mg tablet 10 mg PO DAILY 0RF Label Comments: TAKE 1 TABLET BY MOUTH DAILY. lorazepam 1 mg tablet 1 mg PO PRN PRN0RF Label Comments: TAKE 1 TABLET BY MOUTH 2 TIMES DAILY NEEDED FOR ANXIETY. DAILY MAX: 2 MG albuterol sulfate [Ventolin HFA] 90 mcg/actuation HFA aerosol inhaler 2 puff INHALATION PRN PRN0RF Label Comments: INHALE 1 PUFF BY MOUTH DIRECTED EVERY 4 HOURS NEEDED FOR WHEEZING rosuvastatin 5 mg tablet 5 mg PO DAILY 0RF Label Comments: TAKE ONE TABLET BY MOUTH ONCE DAILY AT BEDTIME Advair HFA 115-21 mcg/actuation HFA aerosol inhaler 2 inh INHALATION DAILY 0RF Label Comments: INHALE TWO PUFFS INTO THE LUNGS TWO TIMES A DAY DIRECTED hydrochlorothiazide 12.5 mg tablet 12.5 mg PO DAILY 0RF Label Comments: TAKE ONE TABLET BY MOUTH ONCE A DAY Discharge Instructions Instructions: Chest Pain (ED), Heart Palpitations (ED), Dyspnea (ED) Additional Instructions: Your lab work and imaging today is reassuring and shows no evidence of acute concerning or significant findings. It was recommended that you stay for a repeat troponin which is a blood test that can evaluate your heart to rule out a potential heart attack. Without a full evaluation, there is a potential for missed or incomplete diagnoses. If you have any return or worsening of your symptoms, please return immediately to the emergency department. Take your Ativan that you have at home for any symptoms of stress, anxiety or difficulty sleeping. Call your primary care doctor's office on Friday morning to schedule a follow-up appointment for reevaluation and for referral for outpatient monitoring coordinator if your symptoms persist or worsen. Return immediately to the emergency department if you develop any worsening or new concerning symptoms. Discharge Data Discharge Date/Time-TO BE ENTERED AT DEPARTURE: 08/25/21 17:54 Discharge Physician: Gia Lamas Medical Decision Making 56-year-old male with a history of anxiety, panic attacks, morbid obesity, hypertension, CVA who presents for feeling PVCs, shortness of breath and chest pain for the past 90-minutes. EKG notes a rate of 98, sinus, normal axis and no STEMI. Vitals are within normal limits. He appears comfortable and nontoxic. Patient is quite talkative and appears in no acute distress. His lungs are clear. Patient admits to a longstanding history of PVCs with intermittent shortness of breath and chest pain for several years. He states his episode yesterday and today felt similar to his previous episodes. He does admit to significant stress lately with the loss of his father a few months ago and his daughter last month. History and presentation does not appear consistent with PE, dissection but considering his age and history, will obtain a cardiac work-up with plan for repeat troponin and EKG. Labs and imaging reviewed and unremarkable. White blood cell count 13 which is close to his usual baseline. D-dimer 558 which is essentially negative based on age-adjusted cut off but considering his daughter 1 month ago from PE, will obtain a CT chest and second chest x-ray. CT chest reviewed and negative. Patient was given a dose of Ativan and fluids and is asymptomatic. Patient states he does not want to stay in the hospital for repeat troponin and EKG. He has been aware of the potential for missed or incomplete diagnoses and he demonstrates capacity make decisions. He states he feels he knows his symptoms are due to his usual PVCs. Disposition decision made weighing the risks and benefits of hospitalization versus outpatient treatment, the risk for further decompensation, and the patient's wishes. Advised to follow up with the primary care doctor for re-evaluation. Usual and customary return precautions given prior to discharge. Medical Records Medical records reviewed: Yes I reviewed the patient's medical records. Imaging Data Radiologic Study: Radiologist's impression: CTA Chest With Contrast Exam date and time: 08/25/2021 3:50 PM Age: 56 years old Clinical indication: Other: Shortness of breath, palpitations, R/O pe TECHNIQUE: Imaging protocol: Computed tomographic angiography of the chest with contrast. 3D rendering (Not supervised by radiologist): MIP and/or 3D reconstructed images were created by the technologist. Contrast material: OMNIPAQUE 350; Contrast volume: 100 ml; Contrast route: INTRAVENOUS (IV);? COMPARISON: CT CHEST PE CTA 08/30/2020 11:46 PM FINDINGS: Limitations: The exam is limited by body habitus, low lung volumes, underpenetration, overlying leads. Pulmonary arteries: Pulmonary arteries are adequately opacified to the segmental level. No pulmonary emboli within the main or segmental pulmonary arteries. Aorta: Unremarkable. No aortic aneurysm. No aortic dissection. Lungs: Unremarkable. No consolidation. No masses. Pleural spaces: Unremarkable. No pneumothorax. No pleural effusion. Heart: Coronary artery calcification. Lymph nodes: Unremarkable. No enlarged lymph nodes. Bones/joints: Degenerative change of spine. Diffuse idiopathic skeletal hyperostosis. Soft tissues: Unremarkable. IMPRESSION: No pulmonary emboli within the main or segmental pulmonary arteries. Lab Data Lab results reviewed: Yes I reviewed the patient's lab results. Labs: Laboratory Tests Range/Units 08/25/21 08/25/21 08/25/21 14:08 14:08 14:08 WBC (4.4-10.8) 10^3/uL 13.33 H RBC (4.36-5.78) 10^6/uL 5.83 H Hgb (13.5-17.5) g/dL 17.5 Hct (40.0-50.0) % 51.7 H MCV (80-95) fL 88.7 MCH (27.0-33.0) pg 30.0 MCHC (32.0-36.0) % 33.8 RDW (11.8-14.1) % 13.1 Plt Count (130-400) 10^3/uL 237 MPV (8.0-11.0) fL 9.7 Immature Gran % 0.4 Neutrophils % 68.7 Lymphocytes % 23.3 Monocytes % 5.4 Eosinophils % 1.7 Basophils % 0.5 Nucleated RBC % % 0 Absolute Neutrophils (1.2-6.7) 10^3/uL 9.16 H Absolute Lymphocytes (1.2-3.4) 10^3/uL 3.11 Absolute Monocytes (0.1-0.8) 10^3/uL 0.72 Absolute Eosinophils (0.0-0.7) 10^3/uL 0.23 Absolute Basophils (0.0-0.2) 10^3/uL 0.07 D-Dimer (<500) ng/mlFEU 558 H Sodium (136-145) mmol/L 137 Potassium (3.5-5.1) mmol/L 3.8 Chloride (98-107) mmol/L 103 Carbon Dioxide (21.0-32.0) mmol/L 26.0 Anion Gap (3-11) mmol/L 8.0 BUN (7-18) mg/dL 11 Creatinine (0.70-1.30) mg/dL 0.8 Estimated GFR/1.73 m2 (mL/min/1.73m2) >= 60.00 Glucose (74-106) mg/dL 176 H Calcium (8.5-10.1) mg/dL 9.6 Magnesium (1.8-2.4) mg/dL 2.1 Total Bilirubin (0.2-1.0) mg/dL 0.3 AST (15-37) U/L 14 L ALT (16-63) U/L 25 Alkaline Phosphatase (46-116) U/L 94 Troponin I (<or=60) ng/L < 50 Total Protein (6.4-8.2) g/dL 7.9 Albumin (3.4-5.0) g/dL 4.0 Range/Units 08/25/21 17:32 WBC (4.4-10.8) 10^3/uL RBC (4.36-5.78) 10^6/uL Hgb (13.5-17.5) g/dL Hct (40.0-50.0) % MCV (80-95) fL MCH (27.0-33.0) pg MCHC (32.0-36.0) % RDW (11.8-14.1) % Plt Count (130-400) 10^3/uL MPV (8.0-11.0) fL Immature Gran % Neutrophils % Lymphocytes % Monocytes % Eosinophils % Basophils % Nucleated RBC % % Absolute Neutrophils (1.2-6.7) 10^3/uL Absolute Lymphocytes (1.2-3.4) 10^3/uL Absolute Monocytes (0.1-0.8) 10^3/uL Absolute Eosinophils (0.0-0.7) 10^3/uL Absolute Basophils (0.0-0.2) 10^3/uL D-Dimer (<500) ng/mlFEU Sodium (136-145) mmol/L Potassium (3.5-5.1) mmol/L Chloride (98-107) mmol/L Carbon Dioxide (21.0-32.0) mmol/L Anion Gap (3-11) mmol/L BUN (7-18) mg/dL Creatinine (0.70-1.30) mg/dL Estimated GFR/1.73 m2 (mL/min/1.73m2) Glucose (74-106) mg/dL Calcium (8.5-10.1) mg/dL Magnesium (1.8-2.4) mg/dL Total Bilirubin (0.2-1.0) mg/dL AST (15-37) U/L ALT (16-63) U/L Alkaline Phosphatase (46-116) U/L Troponin I (<or=60) ng/L Cancelled Total Protein (6.4-8.2) g/dL Albumin (3.4-5.0) g/dL HPI General Mode of arrival: ambulatory. Date/Time Provider Initiated Documentation: 08/25/21 14:00. Limitations to Documentation: no limitations. Information obtained by: patient. HPI Narrative: Patient is a 56-year-old male who presents to the ED with a complaint of an episode of PVCs , shortness of breath and chest pain yesterday and today. Patient states he was doing some light work around the house yesterday and today when his symptoms started. He states yesterday the symptoms lasted several hours, he took an Ativan that he has at home as needed for the symptoms are anxiety and took a nap and when he awoke the symptoms are resolved. Patient states he was doing some light organizing at home today and developed palpitations consistent with his usual PVCs , shortness of breath and sharp anterior chest pain. He states he has had the symptoms for the past few hours and they are now resolved. He states he knows this is consistent with his usual symptoms associated with his PVCs and states he usually has shortness of breath and chest pain with this. He states he has had the symptoms for several years and they are like his usual episodes. He states he has also been under stress since he has not been sleeping lately as his father a few months ago and his daughter of a PE last month. He denies any fever, acute cough, dizziness, nausea, vomiting, recent travel, recent surgery, leg pain or swelling. Related Data Home Medications Medication Instructions Recorded Confirmed aspirin 81 mg chewable tablet 81 mg PO DAILY tab-cap 01/03/15 08/31/20 (Aspirin Low-Strength) ibuprofen 200 mg tablet 600 mg PO PRN PRN 08/30/20 08/30/20 albuterol sulfate 90 mcg/actuation 2 puff INHALATION PRN PRN 08/25/21 08/25/21 aerosol inhaler (Ventolin HFA) fluticasone propionate 115 2 inh INHALATION DAILY 08/25/21 08/25/21 mcg-salmeterol 21 mcg/actuation HFA inhaler (Advair HFA) hydrochlorothiazide 12.5 mg tablet 12.5 mg PO DAILY 08/25/21 08/25/21 lisinopril 10 mg tablet 10 mg PO DAILY 08/25/21 08/25/21 lorazepam 1 mg tablet 1 mg PO PRN PRN 08/25/21 08/25/21 metformin 500 mg tablet 500 mg PO BID 08/25/21 08/25/21 rosuvastatin 5 mg tablet 5 mg PO DAILY 08/25/21 08/25/21 Allergies Allergy/AdvReac Type Severity Reaction Status Date / Time THC Allergy Severe ANAPHALAXIS Uncoded 08/25/21 13:58 HEMP Allergy Intermediate HIVES Uncoded 08/25/21 13:58 General Stated Complaint: Chest Pain VANESSA: 3 Review of Systems All systems reviewed & are unremarkable except as noted in HPI and below Constitutional Constitutional: Reports as per HPI, Denies chills, Denies excessive sweating, Denies fatigue and Denies fever(s) Eyes Eyes: Denies blurry vision ENT Ears, Nose, Mouth, and Throat: Denies dizziness, Denies sore throat and Denies throat swelling Cardiovascular Cardiovascular: Reports chest pain, Reports rapid heart rate and Reports dyspnea Respiratory Respiratory: Denies cough and Reports dyspnea Gastrointestinal Gastrointestinal: Denies abdominal pain, Denies diarrhea and Denies vomiting Genitourinary Genitourinary: Denies hematuria and Denies dysuria Musculoskeletal Musculoskeletal: Denies back pain and Denies numbness Integumentary/Breasts Skin/Breast: Denies lesions and Denies rash Neurologic Neurologic: Denies behavioral changes, Denies confusion, Denies dizziness, Denies localized weakness and Denies numbness Psychiatric Psychiatric: Denies behavioral changes, Denies confusion and Denies depression Endocrine Endocrine: Denies excessive sweating and Denies fatigue Hematologic/Lymphatic Hematologic/Lymphatic: Denies easy bruising and Denies lymphadenopathy Allergic/Immunologic Allergic/Immunologic: Denies throat swelling PFSH All Active Problems (Updated 08/25/21 @ 17:49 by Gia Lamas DO) Chest pain (Acute) Hyperglycemia (Acute) Palpitations (Acute) Chest pain (Acute) Shortness of breath (Acute) Cerebral thrombosis (Acute 11/29/13) Obesity (Acute 12/21/14) Hypertension (Acute 12/21/14) GERD (gastroesophageal reflux disease) (Acute 12/21/14) Medical History (Updated 08/25/21 @ 17:49 by Gia Lamas DO) Anxiety Insomnia Panic attack Snoring Surgical History H/O hand surgery History of oral surgery 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 Family History Mother Myocardial infarction Father Diabetes Other Heart disease Social History Smoking/Tobacco Use Status: Current every day Tobacco Type: cigarettes Smoking packs per day: 2 Smoking cigarettes per day: 40.0 Smoking risk assessment performed?: Yes Alcohol Intake: current Alcohol Intake frequency: holidays/special occasions only Drug use: Never Substance use type: does not use Do you feel safe at home: Yes Do you feel safe in your relationship?: Yes Exam Const General: cooperative and no acute distress Orientation: alert, awake and oriented x3 HENMT Head: normal to inspection Ears: hearing grossly normal bilaterally and external ears normal Face and sinus: normal facial exam Eyes General: appearance normal, both eyes and all related structures Eyelids: eyelids normal Pupils: PERRL EOM: EOM intact bilaterally Neck Neck: normal visual inspection Lymphatic: no lymphadenopathy noted Chest Chest: normal inspection of the chest Resp Effort & Inspection: normal respiratory effort and able to speak in complete sentences Auscultation: clear to auscultation bilaterally Cardio Rate: regular rate Rhythm: regular rhythm GI Inspection: normal to inspection and obesity Palpation: soft, not firm, no guarding, no hepatosplenomegaly, no masses and nontender Auscultation: normal bowel sounds Back/Spine/Pelvis Back: no CVA tenderness Skin General skin exam: no rashes or lesions noted Neuro General: patient alert, patient awake, patient oriented x3 and moves all extremities Cognition: normal cognition Speech: speech normal Gait: normal gait Motor: muscle tone normal throughout Sensory Exam: no sensory deficits noted Extrem General: normal to inspection, full ROM, capillary refill normal and no edema Psych Appearance: grossly normal Mental Status: mental status grossly normal Speech and Movement: speech and movement normal Affect: normal affect Thought Process: normal Course Vital Signs Vital signs: Vital Signs Temperature 97.9 F 08/25/21 13:56 Pulse 106 H 08/25/21 13:56 Respiratory Rate 18 08/25/21 13:56 Blood Pressure 185/95 H 08/25/21 13:56 Pulse Oximetry 97 08/25/21 13:56 Temperature 97.9 F 08/25/21 13:56 Temperature Source Temporal Artery Scan 08/25/21 13:56 Pulse 106 H 08/25/21 13:56 Respiratory Rate 18 08/25/21 13:56 Blood Pressure 185/95 H 08/25/21 13:56 Blood Pressure Position Sitting 08/25/21 13:56 Pulse Oximetry 97 08/25/21 13:56 Oxygen Delivery Method Room Air 08/25/21 13:56 Oxygen Flow Rate 0 08/25/21 13:56
[2021-08-25 14:15] LABS: Abs Immature Grans 0.05 10^3/uL (0.0-0.06); Absolute Basophil Count 0.07 10^3/uL (0.0-0.2); Absolute Eosinophil Count 0.23 10^3/uL (0.0-0.7); Absolute Lymphocyte Count 3.11 10^3/uL (1.2-3.4); Absolute Monocyte Count 0.72 10^3/uL (0.1-0.8); Absolute Neutrophil Count 9.16 10^3/uL (1.2-6.7); Basophils % 0.5; Eosinophils % 1.7; HCT 51.7 % (40.0-50.0); HGB 17.5 g/dL (13.5-17.5); Immature Grans % 0.4; Lymphocytes % 23.3; MCHC 33.8 % (32.0-36.0); MCV 88.7 fL (80-95); MPV 9.7 fL (8.0-11.0); Monocytes % 5.4; Neutrophils % 68.7; Nucleated RBC 0 %; Platelet Count 237 10^3/uL (130-400); RBC 5.83 10^6/uL (4.36-5.78); RDW 13.1 % (11.8-14.1); RDW-SD 42.3 fL; WBC 13.33 10^3/uL (4.4-10.8)
[2021-08-25 14:32] LABS: ALT 25 U/L (16-63); AST 14 U/L (15-37); Alkaline Phosphatase 94 U/L (46-116); BUN 11 mg/dL (7-18); Bilirubin, Total 0.3 mg/dL (0.2-1.0); CREATININE 0.8 mg/dL (0.70-1.30); Calcium 9.6 mg/dL (8.5-10.1); Chloride 103 mmol/L (98-107); Glucose 176 mg/dL (74-106); Magnesium 2.1 mg/dL (1.8-2.4); Potassium 3.8 mmol/L (3.5-5.1); Sodium 137 mmol/L (136-145); Total Protein 7.9 g/dL (6.4-8.2); Troponin I < 50 ng/L (<or=60)
[2021-08-25 15:16] LABS: D-Dimer 558 ng/mlFEU (<500)
--- NOTE | 2021-08-25 15:30 | DI.CT_ITS ---
Exam(s) CT CHEST PE CTA EXAM: CT CHEST PE CTA CLINICAL HISTORY: shortness of breath, palpitations, r/o PE. TECHNIQUE: Imaging Protocol: Axial CT angiography was performed with multi-slice acquisition and mu lti-planar and/or 3D reconstructions. CONTRAST MATERIAL: Intravenous: Omnipaque 350 Contrast volume:structured data in ml COMPARISON: CT CT CHEST PE CTA from 08/30/2020 FINDINGS: CT angiography of the chest was performed with intravenous infusion of 100 cc of Omnipaque 350. The lungs are clear. No pleural effusion. Tracheobronchial tree appears intact. No evidence of pulmonary embolic disease. Thoracic aorta is of normal diameter, no thoracic aortic an eurysm or dissection, major branch vessels appear intact. No mediastinal or hilar adenopathy. Images obtained through the upper abdomen show unremarkable appearance of the visualized portions of the liver, spleen, pancreas, adrenals, and kidneys. IMPRESSION: Negative CT angiogram of the chest. No evidence of pulmonary embolic disease. RADIATION DOSE DELIVERED: 681.7mGy.cm Total DLP 681.7mGy.cm Total DLP !Error CTDIvol DATA REPOSITORY: All CT scans at this facility are submitted to the National Radiology Data Registry (NRDR) Dose Index Registry (DIR) with the [employer] (A[employer]). RADIATION OPTIMIZATION: All CT scans at this facility use at least one of these dose optimization te chniques: automated exposure control; mA and/or kV adjustment per patient size (includes targeted exa ms where dose is matched to clinical indication); or iterative reconstruction.
[2021-08-25] MEDS: Normal Saline Flush 10 ML SYR IVP (16:00)
[2021-08-25] MEDS: Omnipaque 350 MG/ML 100 ML BTL IJ (16:00)
[2021-08-25] MEDS: LORazepam 1 MG TAB PO (16:40)
[2021-08-25] MEDS: Normal Saline 500 ML IV (16:40)
--- NOTE | 2021-08-25 17:11 | DI.VRAD_ITS ---
PROCEDURE INFORMATION: Exam: CTA Chest With Contrast Exam date and time: 08/25/2021 3:50 PM Age: 56 years old Clinical indication: Other: Shortness of breath, palpitations, R/O pe TECHNIQUE: Imaging protocol: Computed tomographic angiography of the chest with contrast. 3D rendering (Not supervised by radiologist): MIP and/or 3D reconstructed images were created by the technologist. Contrast material: OMNIPAQUE 350; Contrast volume: 100 ml; Contrast route: INTRAVENOUS (IV); COMPARISON: CT CHEST PE CTA 08/30/2020 11:46 PM FINDINGS: Limitations: The exam is limited by body habitus, low lung volumes, underpenetration, overlying leads. Pulmonary arteries: Pulmonary arteries are adequately opacified to the segmental level. No pulmonary emboli within the main or segmental pulmonary arteries. Aorta: Unremarkable. No aortic aneurysm. No aortic dissection. Lungs: Unremarkable. No consolidation. No masses. Pleural spaces: Unremarkable. No pneumothorax. No pleural effusion. Heart: Coronary artery calcification. Lymph nodes: Unremarkable. No enlarged lymph nodes. Bones/joints: Degenerative change of spine. Diffuse idiopathic skeletal hyperostosis. Soft tissues: Unremarkable. IMPRESSION: No pulmonary emboli within the main or segmental pulmonary arteries. Dictated and Authenticated by: Kassandra Navarro MD. Ordering:DIANA Nielsen MD
== END 2021-08-25 17:54 | disposition home or self-care (01) ==
PROVIDERS: Emergency Provider Physician Assistant
DX: R00.2 Palpitations (principal); R07.9 Chest pain, unspecified; R06.02 Shortness of breath; R42 Dizziness and giddiness; F17.210 Nicotine dependence, cigarettes, uncomplicated
CPT/HCPCS: 71275; 80053; 93005; 96360; 99285; 83735; 84484; 85025; 85379; 93010; 99284; J3490

== ENCOUNTER → 2023-06-26 00:36 | Outpatient (CLI) | payer OTHER, SELFPAY ==
--- NOTE | 2023-06-26 08:29 | DI.RAD_ITS ---
Exam(s) XR KNEE LT 3V AP,LAT,DAMION EXAM: XR KNEE LT 3V AP,LAT,DAMION CLINICAL HISTORY: LT KNEE PAIN,M25.562. TECHNIQUE: 2D digital imaging was performed. COMPARISON: No exams were available for comparison FINDINGS: 3 views No evidence of acute fracture nor prominent joint effusion. There is small amount of increased joint fluid. Bone density normal. No osseous lesions. No joint space narrowing. IMPRESSION: No acute osseous findings. Small amount of increased joint fluid noted. DATA REPOSITORY: RADIATION DOSE DELIVERED:
== END ==
PROVIDERS: PCP Internal Medicine; Visit Provider Internal Medicine
DX: M25.562 Pain in left knee (principal)
CPT/HCPCS: 73562

== ENCOUNTER 2023-09-23 07:14 | Emergency (ER) | payer OTHER, SELFPAY ==
--- NOTE | 2023-09-23 07:15 | RT.EKG_ITS ---
APPROVED REPORT Exam: Resting ECG Reason for Exam: repeat chest pain Patient Location: E HR:78 bpm ECG Measurements Heart Rate 78 AXIS AR 217 P 45 QRSd 97 QRS 54 QT 380 T 86 QTc 431 Conclusion Sinus rhythm...normal P axis, V-rate 60- 99 Multiform ventricular premature complexes...short R-R, variable morphology Aberrant conduction of SV complex(es)...aberrant shape, AR 80-220 Prolonged AR interval...AR >210, V-rate 50- 90 Inferior infarct, acute...ST>0.10mV, T upright, II III aVF ST segement elevation II III aVF with depressions aVL, PVC
--- NOTE | 2023-09-23 07:15 | RT.EKG_ITS ---
APPROVED REPORT Exam: Resting ECG Reason for Exam: CP/SOB Patient Location: E HR:75 bpm ECG Measurements Heart Rate 75 AXIS TX 192 P 42 QRSd 103 QRS 31 QT 392 T 88 QTc 439 Conclusion Sinus rhythm...normal P axis, V-rate 60- 99 ST elevation, consider inferior injury...ST >0.08mV, II III aVF ST segment elevation II III aVF, depressions aVL, V2
[2023-09-23 07:20] VITALS: BP 115/78; PULSE 76; RESP 18; TEMP 36.2; O2SAT 92
[2023-09-23] MEDS: Aspirin 81 MG CHEW 324 MG CH (07:36)
[2023-09-23] MEDS: Normal Saline 500 ML 1000 ML IV (07:36)
--- NOTE | 2023-09-23 07:36 | ED.GENADUL_ITS ---
Discharge Plan Disposition Patient Disposition: Transfer-Acute Inpatient Care Specific Acute Inpt Facility: [facility] Condition: Stable Discharge Details Chief Complaint: Chest Pain Clinical Impression: ST elevation RI (STEMI) Primary Care Provider: Unknown,Unknown ED Provider: Uday Hutton Home Meds and New Rx's Prescriptions: No Action metformin 500 mg tablet 1,000 mg PO BID aspirin [Aspirin Low-Strength] 81 MG tablet,chewable 81 mg PO DAILY ibuprofen 200 mg Tablet 600 mg PO PRN PRN lisinopril 10 mg tablet 10 mg PO DAILY Patient Comments: TAKE 1 TABLET BY MOUTH DAILY. lorazepam 1 mg tablet 1 mg PO PRN PRN Patient Comments: TAKE 1 TABLET BY MOUTH 2 TIMES DAILY NEEDED FOR ANXIETY. DAILY MAX: 2 MG albuterol sulfate [Ventolin HFA] 90 mcg/actuation HFA aerosol inhaler 2 puff INHALATION PRN PRN Patient Comments: INHALE 1 PUFF BY MOUTH DIRECTED EVERY 4 HOURS NEEDED FOR WHEEZING fluticasone propion-salmeterol [Advair HFA] 115-21 mcg/actuation HFA aerosol inhaler 2 inh INHALATION DAILY Patient Comments: INHALE TWO PUFFS INTO THE LUNGS TWO TIMES A DAY DIRECTED hydrochlorothiazide 12.5 mg tablet 12.5 mg PO DAILY Patient Comments: TAKE ONE TABLET BY MOUTH ONCE A DAY HPI General Date/Time Provider Initiated Documentation: 09/23/23 07:27 . HPI Narrative: 58-year-old male history of obesity hypertension hyperglycemia presents with 1 to 2 days of anterior chest discomfort woke up this morning with worsening chest discomfort anterior nature rating into neck and jaw. Denies history of coronary disease or thromboembolic disease. Related Data Home Medications Medication Instructions Recorded Confirmed aspirin 81 mg chewable tablet 81 mg PO DAILY 01/03/15 06/26/23 (Aspirin Low-Strength) ibuprofen 200 mg tablet 600 mg PO PRN PRN 08/30/20 06/26/23 albuterol sulfate 90 mcg/actuation 2 puff inhalation PRN PRN 08/25/21 06/26/23 aerosol inhaler (Ventolin HFA) fluticasone propionate 115 2 inh inhalation DAILY 08/25/21 06/26/23 mcg-salmeterol 21 mcg/actuation HFA inhaler (Advair HFA) hydrochlorothiazide 12.5 mg tablet 12.5 mg PO DAILY 08/25/21 06/26/23 lisinopril 10 mg tablet 10 mg PO DAILY 08/25/21 06/26/23 lorazepam 1 mg tablet 1 mg PO PRN PRN 08/25/21 06/26/23 metformin 500 mg tablet 1,000 mg PO BID 06/26/23 06/26/23 Allergies Allergy/AdvReac Type Severity Reaction Status Date / Time THC Allergy Severe ANAPHALAXIS Uncoded 06/26/23 09:46 HEMP Allergy Intermediate HIVES Uncoded 06/26/23 09:46 General Stated Complaint: Chest Pain VANESSA: 2 Review of Systems Narrative: Review of Systems Constitutional: negative Eyes: negative ENT: negative Cardiovascular: Chest pain Respiratory: negative Gastrointestinal: negative : negative Musculoskeletal: negative Skin: negative Neurologic: negative Psych: negative Exam Narrative Exam Narrative: Physical Examination General: alert, awake, cooperative, moderately uncomfortable HEENT: normocephalic, atraumatic; PERRL, EOM intact, conjunctiva normal; no nasal discharge; moist mucous membranes, oral and pharyngeal mucosa normal, tolerating secretions Neck: supple, trachea midline; full ROM Chest: normal to inspection Respiratory: normal respiratory effort, speaking in full sentences, clear to auscultation, no wheezing, rales or rhonchi Cardiac: regular rate, regular rhythm, S1S2 intact, no murmurs rubs or gallops GI: abdomen soft, non-tender, non-distended; no palpable mass or hepatosplenomegaly Skin: no lesions, rashes or trauma appreciated Neuro: AAOx3, normal speech, moving all extremities Extremities: No peripheral edema Psych: Appropriate mood and affect Course Vital Signs Vital signs: Vital Signs Temperature 36.2 C L 09/23/23 07:20 Pulse 76 09/23/23 07:20 Respiratory Rate 18 09/23/23 07:20 Blood Pressure 115/78 09/23/23 07:20 Pulse Oximetry 92 09/23/23 07:20 Temperature 36.2 C L 09/23/23 07:20 Temperature Source Tympanic 09/23/23 07:20 Pulse 76 09/23/23 07:20 Respiratory Rate 18 09/23/23 07:20 Blood Pressure 115/78 09/23/23 07:20 Blood Pressure Position Sitting 09/23/23 07:20 Pulse Oximetry 92 09/23/23 07:20 Oxygen Delivery Method Room Air 09/23/23 07:20 Oxygen Flow Rate 0 09/23/23 07:20 Pain Level 10 09/23/23 07:20 Medical Decision Making 58-year-old male history of obesity, hypertension, hyperglycemia, presents with intermittent anterior chest pain over the last day worsening this morning radiating into his jaw and neck, EKG showing ST segment elevation II III aVF, repeat EKG showing reciprocal changes, consistent with inferior STEMI; patient loaded with aspirin, clopidogrel and high-dose statin, verbal consent obtained from patient and family to administer TNK given likely protracted time to 911 Dispatcher. Stat consultation with interventional radiology department has been initiated, awaiting callback. Basic labs troponin BNP have been drawn, portable x-ray has been ordered; likely transport to [facility] 911 Dispatcher. Low suspicion for PE aortic pathology pneumothorax or pneumonia. Patient alert interactive hemodynamically stable. 7: 55 patient loaded with clopidogrel 30 mg, atorvastatin 80 mg, received aspirin on arrival, have ordered heparin drip ACS protocol, discussed case with interventional cardiology team who has accepted patient to 911 Dispatcher at [facility]. Accepting physician Dr. Velazquez. [facility] air medics and route to transfer patient. Patient remains hemodynamically stable, blood pressures improved 150/74, patient's coloration and symptoms are improving as well. Wanted to avoid nitroglycerin for discomfort given inferior STEMI pattern, therefore low-dose fentanyl has been administered. Patient does have a fear of flying may consider low-dose benzodiazepine before takeoff. 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
[2023-09-23] MEDS: Tenecteplase 50 MG KIT IVP (07:38)
[2023-09-23] MEDS: Atorvastatin 40 MG TAB 80 MG PO (07:42)
[2023-09-23] MEDS: Clopidogrel 300 MG TAB PO (07:42)
[2023-09-23 07:44] LABS: Abs Immature Grans 0.05 10^3/uL (0.0-0.06); Absolute Basophil Count 0.08 10^3/uL (0.0-0.2); Absolute Eosinophil Count 0.38 10^3/uL (0.0-0.7); Absolute Lymphocyte Count 4.78 10^3/uL (1.2-3.4); Absolute Neutrophil Count 5.81 10^3/uL (1.2-6.7); Basophils % 0.7 %; Eosinophils % 3.2 %; HCT 52.5 % (40.0-50.0); HGB 17.5 g/dL (13.5-17.5); Immature Grans % 0.4 %; Lymphocytes % 39.8 %; MCH 29.4 pg (27.0-33.0); MCHC 33.3 % (32.0-36.0); MCV 88 fL (80-95); MPV 9.3 fL (8.0-11.0); Monocytes % 7.5 %; Neutrophils % 48.4 %; Platelet Count 232 10^3/uL (130-400); RBC 5.95 10^6/uL (4.36-5.78); RDW 13.3 % (11.8-14.1); WBC 12.01 10^3/uL (4.4-10.8)
[2023-09-23 07:48] VITALS: BP 155/74; PULSE 86; RESP 20; O2SAT 93
[2023-09-23 07:57] LABS: PTT Activated 24.8 sec (23.6-32.8); Prothrombin Time 10.1 sec (9.1-11.1)
[2023-09-23] MEDS: fentaNYL 100 MCG/2 ML VIAL 12.5 MCG IVP (08:03)
[2023-09-23 08:06] LABS: ALT 43 U/L (16-63); AST 19 U/L (15-37); Albumin 3.7 g/dL (3.4-5.0); Alkaline Phosphatase 73 U/L (46-116); Anion Gap 8.4 mmol/L (3-11); BUN 13 mg/dL (7-18); Bilirubin, Total 0.4 mg/dL (0.2-1.0); CO2 29.6 mmol/L (21.0-32.0); CREATININE 0.9 mg/dL (0.70-1.30); Calcium 9.1 mg/dL (8.5-10.1); Chloride 102 mmol/L (98-107); Estimated GFR 99.62 (mL/min/1.73m2); Glucose 165 mg/dL (74-106); NT-proBNP 212 pg/mL (<300); Potassium 3.8 mmol/L (3.5-5.1); Sodium 140 mmol/L (136-145); TSH (W/Ref FT4) 2.65 uIU/mL (0.36-3.74); Total Protein 7.5 g/dL (6.4-8.2)
--- NOTE | 2023-09-23 08:07 | DI.RAD_ITS ---
Exam(s) XR PORTABLE CHEST AP EXAM: XR PORTABLE CHEST AP CLINICAL HISTORY: chest pain TECHNIQUE: 2D digital imaging was performed of the chest. One image was obtained. An AP view was ob tained. COMPARISON: CR,XR XR CHEST 2V PA LATERAL from 08/30/2020 FINDINGS: MEDIASTINUM: Normal. HEART: Normal. PULMONARY VASCULATURE: Normal. LUNGS: Clear. PLEURAL SPACE: No pleural effusion or pneumothorax. BONE:Within normal limits for the patient's age. OTHER FINDINGS:Normal. IMPRESSION: No acute pulmonary findings. DATA REPOSITORY: RADIATION DOSE DELIVERED:
[2023-09-23 08:10] LABS: Troponin I 101 ng/L (< or =60)
[2023-09-23] MEDS: Heparin in 0.45% NaCl 25,000 UNIT/250 ML BAG 17 UNIT IV (08:15)
--- NOTE | 2023-09-23 08:30 | RT.EKG_ITS ---
APPROVED REPORT Exam: Resting ECG Reason for Exam: post lytics Patient Location: E HR:82 bpm ECG Measurements Heart Rate 82 AXIS [place] 214 P 43 QRSd 111 QRS 36 QT 407 T 23 QTc 477 Conclusion Sinus rhythm...normal P axis, V-rate 60- 99 Prolonged NY interval...NY >210, V-rate 50- 90 ST elevation, consider inferior injury...ST >0.08mV, II III aVF sinus rhythm, normal axis, normal intervals, ST segment elevation II III aVF, depressions aVL and V2
[2023-09-23 08:44] VITALS: PULSE 86; RESP 20; O2SAT 93
[2023-09-23 09:01] VITALS: BP 155/74; PULSE 86; RESP 20; O2SAT 93
[2023-09-23] MEDS: LORazepam 2 MG/ML VIAL (09:04)
== END 2023-09-23 08:49 | disposition short-term general hospital (02) ==
PROVIDERS: Emergency Provider Emergency Medicine
DX: I21.19 ST elevation (STEMI) myocardial infarction involving other coronary artery of inferior wall (principal); I10 Essential (primary) hypertension; J44.9 Chronic obstructive pulmonary disease, unspecified; E66.9 Obesity, unspecified; R73.9 Hyperglycemia, unspecified; F17.210 Nicotine dependence, cigarettes, uncomplicated; Z79.84 Long term (current) use of oral hypoglycemic drugs; Z79.82 Long term (current) use of aspirin
CPT/HCPCS: 36415; 80053; 93005; 96374; 96375; 99285; 71045; 83735; 83880; 84443; 84484; 85025; 85610; 85730; 93010; J1644; J2060; J3010; J3101

== ENCOUNTER 2023-10-17 09:23 | Inpatient (IN) | payer OTHER, SELFPAY ==
[2023-10-17] VITALS (94 sets, daily range): BP systolic 91–173; BP diastolic 40–133; PULSE 40–87; RESP 12–24; TEMP 36.6–36.8; O2SAT 92–98
--- NOTE | 2023-10-17 09:15 | RT.EKG_ITS ---
APPROVED REPORT Exam: Resting ECG Reason for Exam: Chest pain Patient Location: E HR:78 bpm ECG Measurements Heart Rate 78 AXIS [place] 187 P 30 QRSd 108 QRS -7 QT 409 T -31 QTc 466 Conclusion Sinus rhythm'78 albertinaemtimothy no stemi
[2023-10-17 09:42] LABS: Abs Immature Grans 0.04 10^3/uL (0.0-0.06); Absolute Basophil Count 0.08 10^3/uL (0.0-0.2); Absolute Eosinophil Count 0.25 10^3/uL (0.0-0.7); Absolute Lymphocyte Count 2.07 10^3/uL (1.2-3.4); Absolute Monocyte Count 0.71 10^3/uL (0.1-0.8); Absolute Neutrophil Count 7.87 10^3/uL (1.2-6.7); Basophils % 0.7 %; Eosinophils % 2.3 %; HCT 46.9 % (40.0-50.0); HGB 15.8 g/dL (13.5-17.5); Immature Grans % 0.4 %; Lymphocytes % 18.8 %; MCH 29.3 pg (27.0-33.0); MCHC 33.7 % (32.0-36.0); MCV 87 fL (80-95); MPV 8.9 fL (8.0-11.0); Monocytes % 6.4 %; Neutrophils % 71.4 %; Platelet Count 243 10^3/uL (130-400); RDW 13.2 % (11.8-14.1); RDW-SD 41.6 fL; WBC 11.02 10^3/uL (4.4-10.8)
[2023-10-17] MEDS: Aspirin 81 MG CHEW 324 MG CH (09:50)
[2023-10-17] MEDS: nitroGLYcerin 0.4 MG TAB SL ×2 (09:54→10:00)
[2023-10-17 09:55] LABS: PTT Activated 28.5 sec (23.6-32.8); Prothrombin Time 10.5 sec (9.1-11.1)
[2023-10-17 10:09] LABS: ALT 32 U/L (16-63); AST 14 U/L (15-37); Albumin 3.5 g/dL (3.4-5.0); Alkaline Phosphatase 103 U/L (46-116); Anion Gap 10.6 mmol/L (3-11); BUN 10 mg/dL (7-18); Bilirubin, Total 0.6 mg/dL (0.2-1.0); CO2 25.4 mmol/L (21.0-32.0); Chloride 100 mmol/L (98-107); Estimated GFR 87.78 (mL/min/1.73m2); Glucose 165 mg/dL (74-106); NT-proBNP 705 pg/mL (<300); Potassium 4.2 mmol/L (3.5-5.1); Sodium 136 mmol/L (136-145); Total Protein 7.5 g/dL (6.4-8.2); Troponin I < 50 ng/L (< or =60)
--- NOTE | 2023-10-17 10:15 | DI.RAD_ITS ---
Exam(s) XR PORTABLE CHEST AP EXAM: XR PORTABLE CHEST AP CLINICAL HISTORY: chest pain TECHNIQUE: 2D digital imaging was performed. COMPARISON: CR XR PORTABLE CHEST AP from 09/23/2023 FINDINGS: Exam is extremely limited due to technique. The left lung base is not well seen. LUNGS: Grossly clear where visualized. No pleural abnormality seen. HEART: Normal size. AORTA: Normal diameter. BONES: Unremarkable for age. Soft tissues: Unremarkable. IMPRESSION: No acute findings. DATA REPOSITORY: RADIATION DOSE DELIVERED:
[2023-10-17] MEDS: ALPRAZolam 0.5 MG TAB PO (10:49)
--- NOTE | 2023-10-17 11:21 | ED.GENADUL_ITS ---
Discharge Plan Discharge Details Chief Complaint: Chest Pain Primary Care Provider: Unknown,Unknown ED Provider: Fatuma Barakat Home Meds and New Rx's Prescriptions: No Action metformin 500 mg tablet 1,000 mg PO BID aspirin [Aspirin Low-Strength] 81 MG tablet,chewable 81 mg PO DAILY ibuprofen 200 mg Tablet 600 mg PO PRN PRN lisinopril 10 mg tablet 10 mg PO DAILY Patient Comments: TAKE 1 TABLET BY MOUTH DAILY. lorazepam 1 mg tablet 1 mg PO PRN PRN Patient Comments: TAKE 1 TABLET BY MOUTH 2 TIMES DAILY NEEDED FOR ANXIETY. DAILY MAX: 2 MG albuterol sulfate [Ventolin HFA] 90 mcg/actuation HFA aerosol inhaler 2 puff INHALATION PRN PRN Patient Comments: INHALE 1 PUFF BY MOUTH DIRECTED EVERY 4 HOURS NEEDED FOR WHEEZING fluticasone propion-salmeterol [Advair HFA] 115-21 mcg/actuation HFA aerosol inhaler 2 inh INHALATION DAILY Patient Comments: INHALE TWO PUFFS INTO THE LUNGS TWO TIMES A DAY DIRECTED hydrochlorothiazide 12.5 mg tablet 12.5 mg PO DAILY Patient Comments: TAKE ONE TABLET BY MOUTH ONCE A DAY carvedilol 25 mg tablet 25 mg PO BID Patient Comments: TAKE ONE TABLET BY MOUTH TWICE A DAY; TAKE WITH MEALS atorvastatin 80 mg tablet 80 mg PO QPM clopidogrel 75 mg tablet 75 mg PO DAILY HPI General Date/Time Provider Initiated Documentation: 10/17/23 09:25 . Limitations to Documentation: no limitations . Information obtained by: patient . HPI Narrative: 58-year-old gentleman with past medical history of hypertension, tobacco abuse, hype per lipidemia, recent STEMI with 4 stents placed 2 weeks ago at [facility] returns for evaluation of chest pain. He reports that he noticed the symptoms when he woke up. He reports feeling palpitations, a pressure squeezing sensation and shortness of breath. He reports that the severe squeezing sensation is intermittent. He reports that he feels like he is having PVCs which she has had previously. He feels a little lightheaded. He reports compliance with his medications since his stenting procedure. He states that he has decreased his tobacco use and is down to 13 cigarettes/day. He reports that he has not had any similar symptoms since discharge from the hospital until today. Related Data Home Medications Medication Instructions Recorded Confirmed aspirin 81 mg chewable tablet 81 mg PO DAILY 08/18/15 05/31/24 (Aspirin Low-Strength) ibuprofen 200 mg tablet 600 mg PO PRN PRN 08/30/20 10/17/23 albuterol sulfate 90 mcg/actuation 2 puff inhalation PRN PRN 08/25/21 10/17/23 aerosol inhaler (Ventolin HFA) fluticasone propionate 115 2 inh inhalation DAILY 08/25/21 10/17/23 mcg-salmeterol 21 mcg/actuation HFA inhaler (Advair HFA) hydrochlorothiazide 12.5 mg tablet 12.5 mg PO DAILY 08/25/21 10/17/23 lisinopril 10 mg tablet 10 mg PO DAILY 08/25/21 10/17/23 lorazepam 1 mg tablet 1 mg PO PRN PRN 08/25/21 10/17/23 metformin 500 mg tablet 1,000 mg PO BID 06/26/23 10/17/23 atorvastatin 80 mg tablet 80 mg PO QPM 10/17/23 10/17/23 carvedilol 25 mg tablet 25 mg PO BID 10/17/23 10/17/23 clopidogrel 75 mg tablet 75 mg PO DAILY 10/17/23 10/17/23 Allergies Allergy/AdvReac Type Severity Reaction Status Date / Time THC Allergy Severe ANAPHALAXIS Uncoded 10/17/23 14:28 HEMP Allergy Intermediate HIVES Uncoded 10/17/23 14:28 General Stated Complaint: Chest Pain VANESSA: 2 Exam Narrative Exam Narrative: Review of Systems: All systems reviewed & are unremarkable except as noted in HPI and below Well-developed, no acute distress Smells of tobacco NCAT Multiple dental periods, poor dentition PERRL, normal conjunctiva Irregular heartbeat, bigeminy Unlabored respiratory effort, no tachypnea or hypoxia, clear bilaterally Nondistended abdomen Extremities w/o deformity, no cyanosis, no edema No rashes or lesions. no focal neurologic deficits Appropriate mood and affect Course Vital Signs Vital signs: Vital Signs Pulse 78 10/17/23 09:25 Respiratory Rate 16 10/17/23 09:25 Blood Pressure 96/83 L 10/17/23 09:25 Pulse Oximetry 98 10/17/23 09:25 Pulse 75 10/17/23 10:21 Pulse 80 10/17/23 10:21 Respiratory Rate 16 10/17/23 10:21 Respiratory Effort Short of Breath 10/17/23 09:56 Respiratory Depth Normal 10/17/23 09:56 Respiratory Pattern Normal 10/17/23 09:56 Blood Pressure 118/53 L 10/17/23 10:21 Blood Pressure Mean 76 10/17/23 10:21 Blood Pressure Position Sitting 10/17/23 09:25 Pulse Oximetry 95 10/17/23 10:21 Oxygen Delivery Method Room Air 10/17/23 09:25 Oxygen Flow Rate 0 10/17/23 09:25 Pain Level 0 10/17/23 10:03 Lab/Test Results Lab/Test Results: Laboratory Tests Range/Units 10/17/23 09:36 WBC (4.4-10.8) 10^3/uL 11.02 H RBC (4.36-5.78) 10^6/uL 5.40 Hgb (13.5-17.5) g/dL 15.8 Hct (40.0-50.0) % 46.9 MCV (80-95) fL 87 MCH (27.0-33.0) pg 29.3 MCHC (32.0-36.0) % 33.7 RDW (11.8-14.1) % 13.2 Plt Count (130-400) 10^3/uL 243 MPV (8.0-11.0) fL 8.9 Immature Gran % % 0.4 Neutrophils % % 71.4 Lymphocytes % % 18.8 Monocytes % % 6.4 Eosinophils % % 2.3 Basophils % % 0.7 Nucleated RBC % (0.0-0.3) % 0.0 Absolute Neutrophils (1.2-6.7) 10^3/uL 7.87 H Absolute Lymphocytes (1.2-3.4) 10^3/uL 2.07 Absolute Monocytes (0.1-0.8) 10^3/uL 0.71 Absolute Eosinophils (0.0-0.7) 10^3/uL 0.25 Absolute Basophils (0.0-0.2) 10^3/uL 0.08 PT (9.1-11.1) sec 10.5 INR (0.9-1.1) 1.0 APTT (23.6-32.8) sec 28.5 Sodium (136-145) mmol/L 136 Potassium (3.5-5.1) mmol/L 4.2 Chloride (98-107) mmol/L 100 Carbon Dioxide (21.0-32.0) mmol/L 25.4 Anion Gap (3-11) mmol/L 10.6 BUN (7-18) mg/dL 10 Creatinine (0.70-1.30) mg/dL 1.0 Est GFR (CKD-EPI 2020) (mL/min/1.73m2) 87.78 Glucose (74-106) mg/dL 165 H Calcium (8.5-10.1) mg/dL 9.0 Magnesium (1.8-2.4) mg/dL 2.0 Total Bilirubin (0.2-1.0) mg/dL 0.6 AST (15-37) U/L 14 L ALT (16-63) U/L 32 Alkaline Phosphatase (46-116) U/L 103 Troponin I (< or =60) ng/L < 50 NT-Pro-B Natriuret Pep (<300) pg/mL 705 H Total Protein (6.4-8.2) g/dL 7.5 Albumin (3.4-5.0) g/dL 3.5 Medical Decision Making Emergent evaluation of chest pain in a patient with recent coronary stenting and STEMI heart attack. He is hemodynamically stable. His EKG has been reviewed and independently interpreted. Sinus 78, bigeminy noted. QTc normal. No STEMI appreciated. Plan for full dose aspirin. Patient is currently on Plavix. Will check lab work, chest x-ray and discussed with [facility] cardiology. 1045 Lab work reviewed. White blood cell count of 11. Electrolytes within normal range. BNP slightly elevated at 705. First troponin negative. Chest x-ray is poor quality film and nondiagnostic. The patient received 2 doses of nitroglycerin which resolved the chest pressure completely. I reached out to [facility] cardiology for management recommendations. 1200 Discussed with [facility] cardiology. They recommend transfer to their facility. Unfortunately they do not have any beds, but are listing for transfers tomorrow. They do recommend starting heparin drip, repeating the EKG. Continuing DAPT. Repeat EKG was remarkable for changed to sinus rhythm, bigeminy has resolved. Patient has been chest pain-free since the nitroglycerin and no additional symptoms have recurred. Given that he will not be able to be transferred until tomorrow, the patient will be admitted to this facility for continuation of the heparin drip and monitoring of symptoms. He is agreeable to this plan. Discussed with the hospitalist who will admit to their service for further management. Medical Records Medical records reviewed: Yes I reviewed the patient's medical records. Lab Data Lab results reviewed: Yes I reviewed the patient's lab results. 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
--- NOTE | 2023-10-17 11:45 | RT.EKG_ITS ---
APPROVED REPORT Exam: Resting ECG Reason for Exam: chest pain Patient Location: E HR:67 bpm ECG Measurements Heart Rate 67 AXIS SD 198 P 34 QRSd 100 QRS -5 QT 423 T -20 QTc 447 Conclusion Sinus rhythm 67 no stemi
[2023-10-17] MEDS: Heparin in 0.45% NaCl 25,000 UNIT/250 ML BAG 10 UNIT IV (12:18)
[2023-10-17 12:51] LABS: Troponin I < 50 ng/L (< or =60)
--- NOTE | 2023-10-17 13:18 | HPE_ITS ---
Date of service: 10/17/23 Time of Service: 13:18 Assessment and Plan Assessment and plan (1) Unstable angina: Status: Acute Assessment and plan: systemic heparin, DAPT, atovastatin, tranfer to [facility] when bed becomes available, likely will need CABG given his multivessel disease; if further chest pain then begin NTG drip and repeat EKG and troponin and call [facility] for emergent transfer. Critical care time spent interviewing and examining the patient, reviewing studies, discussing case with patient's nurse and consulting physicians was 45 minutes (2) Hypertension: Status: Acute Assessment and plan: continue HCTZ and lisinopril and carvedilol Qualifiers: Hypertension type: primary hypertension Qualified Code(s): I10 - Essential (primary) hypertension (3) Diabetes mellitus type 2, controlled, without complications: Status: Acute Assessment and plan: hold metformin, monitor glucose AC/HS cover w/ low dose novolog sliding scale Qualifiers: Diabetes mellitus prison insulin use: without manager intermediate use Qualified Code(s): E11.9 - Type 2 diabetes mellitus without complications History of Present Illness History of Present Illness Chief Complaint: Palpitations, chest pain N arrative: 58-year-old smoker formally 3 pack/day now down to 2 about a half a pack per day who had a STEMI with inferior wall GA September 23, 2023 sent from [facility] emergency department to [facility] where he underwent cardiac catheterization on September 22 and subsequent cardiac catheterization September 24. Per records shown to me by his it looks like he had multivessel disease with 50% proximal occlusion of the LAD and a 50% distal occlusion and a 90% occlusion of his first diagonal as well as 80% narrowing of his first branch of the circumflex as well as a 99% occlusion of his RCA. After PCI and stent to the RCA which was the culprit lesion of his inferior wall infarct went down to 0% however it reoccluded he underwent cardiac catheterization 09/25/2023 at that point now his LAD lesions show 70% proximal 90% distal lesion and first diagonal had a 90% narrowing and his RCA again was occluded 100%. There were unable to reach stent to RCA but they did place stents in the proximal and distal LAD as well as the first diagonal getting them down to 0%. Patient felt fine after his procedure is symptoms of chest pressure palpitations and dyspnea had resolved. He was feeling fine until early this morning he woke around 4 AM and was having palpitations he states they were PVCs although he was not on the monitor he felt a thumping palpitations chest along with a chest pressure and dyspnea. On arrival to emergency department serial EKG showed a completed inferior wall infarct but no acute ST elevation and no new T wave changes compared to his prior inferior infarct. Patient's chest discomfort went away totally with nitroglycerin given in the emergency room. Patient did have a prescription for nitroglycerin but did not think to use it as his symptoms initially were palpitations and pain. Also of note when he had his heart attack in addition to chest pain he also had tooth ache pain even though he has no teeth. The ED provider called [facility] transfer center spoke with cardiology services who accepted the patient in transfer but because of lack of beds asked that we keep the patient overnight until he can bring him back to [facility]. Patient was started on heparin drip maintained on dual antiplatelet therapy and high-dose atorvastatin. Patient is admitted to the intensive care unit for close monitoring for treatment of unstable angina. First 2 troponins have been negative. proBNP was mildly elevated at 700. Chest x-ray showed no acute findings. Review of Systems All systems reviewed & are unremarkable except as noted in HPI and below PFSH All Active Problems (Updated 10/17/23 @ 18:04 by Lawrence Jeong MD) Diabetes mellitus type 2, controlled, without complications (Acute) Unstable angina (Acute) ST elevation GA (STEMI) (Acute) Oropharyngeal mass (Acute) Hyperglycemia (Acute) Chest pain (Acute) Cerebral thrombosis (Acute 11/29/13) Obesity (Acute 12/21/14) Hypertension (Acute 12/21/14) GERD (gastroesophageal reflux disease) (Acute 12/21/14) Medical History (Updated 10/17/23 @ 18:04 by Lawrence Jeong MD) Panic attack Anxiety Snoring Insomnia Surgical History History of oral surgery H/O hand surgery 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 Family History Mother Myocardial infarction Father Diabetes Other Heart disease Social History Smoking/Tobacco Use Status: Current every day Tobacco Type: cigarettes Smoking packs per day: 3 Smoking cigarettes per day: 60.0 Smoking risk assessment performed?: Yes Alcohol Intake: current Alcohol Intake frequency: holidays/special occasions only Drug use: Never Substance use type: does not use Do you feel safe at home: Yes Do you feel safe in your relationship?: Yes Meds Allergies and Home Medications Allergies Allergy/AdvReac Type Severity Reaction Status Date / Time THC Allergy Severe ANAPHALAXIS Uncoded 10/17/23 14:28 HEMP Allergy Intermediate HIVES Uncoded 10/17/23 14:28 Home Medications Medication Instructions Recorded Confirmed Type aspirin 81 mg chewable tablet 81 mg PO DAILY 01/03/15 10/17/23 History (Aspirin Low-Strength) ibuprofen 200 mg tablet 600 mg PO PRN PRN 08/30/20 10/17/23 History albuterol sulfate 90 mcg/actuation 2 puff inhalation PRN PRN 08/25/21 10/17/23 History aerosol inhaler (Ventolin HFA) fluticasone propionate 115 2 inh inhalation DAILY 08/25/21 10/17/23 History mcg-salmeterol 21 mcg/actuation HFA inhaler (Advair HFA) hydrochlorothiazide 12.5 mg tablet 12.5 mg PO DAILY 08/25/21 10/17/23 History lisinopril 10 mg tablet 10 mg PO DAILY 08/25/21 10/17/23 History lorazepam 1 mg tablet 1 mg PO PRN PRN 08/25/21 10/17/23 History metformin 500 mg tablet 1,000 mg PO BID 06/26/23 10/17/23 History atorvastatin 80 mg tablet 80 mg PO QPM 10/17/23 10/17/23 History carvedilol 25 mg tablet 25 mg PO BID 10/17/23 10/17/23 History clopidogrel 75 mg tablet 75 mg PO DAILY 10/17/23 10/17/23 History Exam Narrative Exam Narrative: Obese white male with long white hair shirley and mustache pedro complexion who is alert and orient x 3 no acute distress able to talk in complete paragraphs. Does not appear to be dyspneic. Neck supple nontender no JVD normal carotid pulses no bruits no thyromegaly no adenopathy, no HJR Chest barrel chested lungs are clear Heart is regular rate and rhythm no appreciable murmur rub or gallop Abdomen obese soft and nontender no organomegaly no bruits Lower extremities without peripheral cyanosis or edema normal pedal pulses Neuro exam grossly intact no focal motor or sensory deficits no focal cranial nerve deficits. Results Imaging Chest x-ray: report reviewed and image reviewed EKG: report reviewed and image reviewed Labs 10/17/23 09:36 10/17/23 09:36 Labs: Laboratory Results - last 24 hr 10/17/23 10/17/23 09:36 12:30 WBC 11.02 H RBC 5.40 Hgb 15.8 Hct 46.9 MCV 87 MCH 29.3 MCHC 33.7 RDW 13.2 Plt Count 243 MPV 8.9 Immature Gran % 0.4 Neutrophils % 71.4 Lymphocytes % 18.8 Monocytes % 6.4 Eosinophils % 2.3 Basophils % 0.7 Nucleated RBC % 0.0 Absolute Neutrophils 7.87 H Absolute Lymphocytes 2.07 Absolute Monocytes 0.71 Absolute Eosinophils 0.25 Absolute Basophils 0.08 PT 10.5 INR 1.0 APTT 28.5 Sodium 136 Potassium 4.2 Chloride 100 Carbon Dioxide 25.4 Anion Gap 10.6 BUN 10 Creatinine 1.0 Est GFR (CKD-EPI 2020) 87.78 Glucose 165 H Calcium 9.0 Magnesium 2.0 Total Bilirubin 0.6 AST 14 L ALT 32 Alkaline Phosphatase 103 Troponin I < 50 < 50 NT-Pro-B Natriuret Pep 705 H Total Protein 7.5 Albumin 3.5 Last Vital Signs Pulse 61 10/17/23 13:01 Resp 17 10/17/23 13:01 BP 129/70 10/17/23 13:01 Pulse Ox 96 10/17/23 13:01 Time Spent Time spent with Patient: 40-54 minutes Time was spent: preparing to see the patient(eg.review tests), obtaining and/or reviewing separately otained hiistory, ordering medications,tests, procedures, referring, communicating with other health health care facility administrator, indepentently interpreting results, counseling the patient and care coordination
--- NOTE | 2023-10-17 16:52 | W.PC.ACHO ---
Registration Status: REG ER Primary Language: Preferred Language: Swedish ED Information & Data Chief Complaint Chest Pain 10/17/23 11:25 Triage Note Feeling short of breath, 10/17/23 09:25 throwing PVCs all morning, feeling pressure/squeezing in chest Medical / Surgical History (Last Reviewed 10/17/23 @ 11:23 by Fatuma Barakat MD) Panic attack Anxiety Snoring Insomnia (Last Reviewed 10/17/23 @ 11:23 by Fatuma Barakat MD) History of oral surgery H/O hand surgery Vocal cord mass Most Recent Vital Signs Pulse 67 10/17/23 16:15 Pulse 67 10/17/23 16:21 Respiratory Rate 15 10/17/23 16:21 Respiratory Effort Short of Breath 10/17/23 09:56 Respiratory Depth Normal 10/17/23 09:56 Respiratory Pattern Normal 10/17/23 09:56 Blood Pressure 124/67 10/17/23 16:15 Blood Pressure Mean 83 10/17/23 16:15 Blood Pressure Position Sitting 10/17/23 09:25 Pulse Oximetry 96 10/17/23 16:21 Oxygen Delivery Method Room Air 10/17/23 09:25 Oxygen Flow Rate 0 10/17/23 09:25 Pain Level 0 10/17/23 16:43 Allergies THC Allergy (Severe, Uncoded 10/17/23 14:28) ANAPHALAXIS HEMP Allergy (Intermediate, Uncoded 10/17/23 14:28) HIVES Precautions Isolation Standard precaution 10/17/23 09:56 Active Medications Generic Name Dose Route Start Last Admin Trade Name Freq PRN Reason Stop Dose Admin Heparin Sodium/Sodium Chloride 25,000 unit in 250 mls @ 10 mls/hr 10/17/23 12:00 10/17/23 12:18 IV 1,000 units/hr INFUSION ALICE 10 mls/hr Administration Protocol 1,000 UNITS/HR Nitroglycerin 0.4 mg 10/17/23 09:48 10/17/23 10:00 Nitroglycerin 0.4 Mg Tab SL 0.4 mg Q5 MIN PRN X3 PRN Administration IV IV Catheter Type [Right Saline Lock Forearm] IV Catheter Gauge [Right 18 Forearm] Diagnostics 10/17/23 10/17/23 Range/Units 12:30 09:36 WBC 11.02 H (4.4-10.8) 10^3/uL RBC 5.40 (4.36-5.78) 10^6/uL Hgb 15.8 (13.5-17.5) g/dL Hct 46.9 (40.0-50.0) % MCV 87 (80-95) fL MCH 29.3 (27.0-33.0) pg MCHC 33.7 (32.0-36.0) % RDW 13.2 (11.8-14.1) % Plt Count 243 (130-400) 10^3/uL MPV 8.9 (8.0-11.0) fL Immature Gran % 0.4 % Neutrophils % 71.4 % Lymphocytes % 18.8 % Monocytes % 6.4 % Eosinophils % 2.3 % Basophils % 0.7 % Nucleated RBC % 0.0 (0.0-0.3) % Absolute Neutrophils 7.87 H (1.2-6.7) 10^3/uL Absolute Lymphocytes 2.07 (1.2-3.4) 10^3/uL Absolute Monocytes 0.71 (0.1-0.8) 10^3/uL Absolute Eosinophils 0.25 (0.0-0.7) 10^3/uL Absolute Basophils 0.08 (0.0-0.2) 10^3/uL PT 10.5 (9.1-11.1) sec INR 1.0 (0.9-1.1) APTT 28.5 (23.6-32.8) sec Sodium 136 (136-145) mmol/L Potassium 4.2 (3.5-5.1) mmol/L Chloride 100 (98-107) mmol/L Carbon Dioxide 25.4 (21.0-32.0) mmol/L Anion Gap 10.6 (3-11) mmol/L BUN 10 (7-18) mg/dL Creatinine 1.0 (0.70-1.30) mg/dL Est GFR (CKD-EPI 2020) 87.78 (mL/min/1.73m2) Glucose 165 H (74-106) mg/dL Calcium 9.0 (8.5-10.1) mg/dL Magnesium 2.0 (1.8-2.4) mg/dL Total Bilirubin 0.6 (0.2-1.0) mg/dL AST 14 L (15-37) U/L ALT 32 (16-63) U/L Alkaline Phosphatase 103 (46-116) U/L Troponin I < 50 < 50 (< or =60) ng/L NT-Pro-B Natriuret Pep 705 H (<300) pg/mL Total Protein 7.5 (6.4-8.2) g/dL Albumin 3.5 (3.4-5.0) g/dL Intake and Output - 24 Hour Total 10/17/23 09:22 thru 10/17/23 10:09 Intake Total 10 Balance 10 Weight 145.15 kg Intake: IV 10 Falls Risk Assessment History of Falls No History 10/17/23 10:11 Contributing Factors Unstable,Medications 10/17/23 10:11 Ambulatory Aids Independent 10/17/23 10:11 Tubes/Lines With any additional score 10/17/23 10:11 Gait Evaluation No gait disturbance 10/17/23 10:11 Cognition No cognitive impairment 10/17/23 10:11 Fall Total Score 26 10/17/23 10:11 Level of Risk Moderate Risk 10/17/23 10:11 v v v v v v v v v Sending and/or Receiving Nurses: Please use comment section below to note any information pertinent to the patient hand-off not included above. Information / Comments: Report received from: Manjula Luque RN
[2023-10-17] MEDS: LORazepam 1 MG TAB PO (18:23)
[2023-10-17 18:44] LABS: PTT Activated 30.6 sec (23.6-32.8)
[2023-10-17 18:49] LABS: Troponin I < 50 ng/L (< or =60)
[2023-10-17] MEDS: Atorvastatin 40 MG TAB 80 MG PO (20:01)
[2023-10-17] MEDS: Nicotine 21 MG/24 HR PATCH TD (20:01)
[2023-10-17] MEDS: Carvedilol 25 MG TAB PO (20:02)
[2023-10-17] MEDS: Normal Saline Flush 10 ML SYR IVP (21:01)
[2023-10-18] VITALS (14 sets, daily range): BP systolic 108–136; BP diastolic 66–83; PULSE 63–74; RESP 13–31; TEMP 36.1–37; O2SAT 95–98
[2023-10-18] MEDS: Heparin in 0.45% NaCl 25,000 UNIT/250 ML BAG 14.5 UNIT IV (01:54)
[2023-10-18 02:21] LABS: PTT Activated 42.2 sec (23.6-32.8)
[2023-10-18 05:31] LABS: Abs Immature Grans 0.04 10^3/uL (0.0-0.06); Absolute Basophil Count 0.05 10^3/uL (0.0-0.2); Absolute Eosinophil Count 0.27 10^3/uL (0.0-0.7); Absolute Lymphocyte Count 2.46 10^3/uL (1.2-3.4); Absolute Monocyte Count 0.62 10^3/uL (0.1-0.8); Absolute Neutrophil Count 5.32 10^3/uL (1.2-6.7); Basophils % 0.6 %; Eosinophils % 3.1 %; HCT 41.7 % (40.0-50.0); HGB 14.3 g/dL (13.5-17.5); Immature Grans % 0.5 %; Lymphocytes % 28.1 %; MCH 29.7 pg (27.0-33.0); MCHC 34.3 % (32.0-36.0); MCV 87 fL (80-95); MPV 9.2 fL (8.0-11.0); Monocytes % 7.1 %; Neutrophils % 60.6 %; Platelet Count 189 10^3/uL (130-400); RBC 4.81 10^6/uL (4.36-5.78); RDW 13.3 % (11.8-14.1); RDW-SD 41.5 fL; WBC 8.76 10^3/uL (4.4-10.8)
[2023-10-18 06:19] LABS: Anion Gap 8.5 mmol/L (3-11); BUN 10 mg/dL (7-18); CO2 27.5 mmol/L (21.0-32.0); CREATININE 0.8 mg/dL (0.70-1.30); Calcium 8.5 mg/dL (8.5-10.1); Chloride 105 mmol/L (98-107); Estimated GFR 103.22 (mL/min/1.73m2); Glucose 123 mg/dL (74-106); NT-proBNP 656 pg/mL (<300); Potassium 3.7 mmol/L (3.5-5.1); Sodium 141 mmol/L (136-145)
[2023-10-18 08:15] LABS: PTT Activated 49.7 sec (23.6-32.8)
[2023-10-18] MEDS: Nicotine 21 MG/24 HR PATCH TD (08:32)
[2023-10-18] MEDS: Carvedilol 25 MG TAB PO (08:33)
[2023-10-18] MEDS: Clopidogrel 75 MG TAB PO (08:33)
[2023-10-18] MEDS: Lisinopril 10 MG TAB PO (08:33)
[2023-10-18] MEDS: Aspirin 81 MG CHEW PO (08:33)
[2023-10-18] MEDS: hydroCHLOROthiazide 12.5 MG TAB PO (08:33)
--- NOTE | 2023-10-18 10:56 | W.PM.DS.N ---
Date of service: 10/18/23 Time of Service: 10:56 DS: Diagnosis Discharge Diagnosis (1) Unstable angina: Status: Acute (2) Hypertension: Status: Acute (3) Diabetes mellitus type 2, controlled, without complications: Status: Acute Discharge Plan Disposition Patient Disposition: Transfer-Acute Inpatient Care Specific Acute Inpt Facility: [facility] Condition: Stable Discharge Details Reason For Visit: unstable angina Admit Date/Time: 10/17/23 13:08 Admit Provider: Lawrence Jeong Attending Provider: Lawrence Jeong Primary Care Provider: Unknown,Unknown Hospital Course Hospital Course: 58-year-old male smoker formally 3 pack a day now down to about half a pack a day who had a STEMI with inferior wall infarct September 23, 2023 sent from [facility] emergency department [facility] where he underwent cardiac catheterization on September 22 found to have an occluded right coronary artery as well as multivessel disease involving his LAD, first diagonal, circumflex. Please see admission H&P for details. He underwent stenting of his RCA and 2 days later had more symptoms had a repeat heart catheterization showed 100% occlusion of his RCA and underwent 3 more stents involving his LAD and circumflex. He presented emergency department [facility] on 10/17/2023 after awakening in the morning with palpitations and chest pain and dyspnea. Although he had nitroglycerin at home he did not think to use his nitroglycerin. On arrival emergency department his chest pain was totally relieved with 2 sublingual nitroglycerin. He was noted to have some ventricular bigeminy which abated on its own. Serial troponins were negative EKG showed no acute ischemic changes showed the old inferior infarct changes. [facility] cardiology was contacted by the [facility] ED provider and although [facility] wanted him transferred to [facility] they had no bed availability and recommend that he be hospitalized overnight at [facility] and placed on heparin drip. Patient was maintained on heparin drip and dual antiplatelet therapy with Plavix and aspirin high-dose statin. Beta-blockers were not initiated. On the night of his admission he had some more runs of ventricular ectopy with ventricular bigeminy associate with palpitations but no chest pain. After getting up to the bathroom the ventricular ectopy subsided on its own and he felt much better. On the morning of transfer to [facility] he was feeling markedly better had no chest pain no shortness of breath. Patient is being transferred to [facility] to the service of Dr. Ra Torres. Home Meds and New Rx's Prescriptions: No Action metformin 500 mg tablet 1,000 mg PO BID aspirin [Aspirin Low-Strength] 81 MG tablet,chewable 81 mg PO DAILY ibuprofen 200 mg Tablet 600 mg PO PRN PRN lisinopril 10 mg tablet 10 mg PO DAILY Patient Comments: TAKE 1 TABLET BY MOUTH DAILY. lorazepam 1 mg tablet 1 mg PO PRN PRN Patient Comments: TAKE 1 TABLET BY MOUTH 2 TIMES DAILY NEEDED FOR ANXIETY. DAILY MAX: 2 MG albuterol sulfate [Ventolin HFA] 90 mcg/actuation HFA aerosol inhaler 2 puff INHALATION PRN PRN Patient Comments: INHALE 1 PUFF BY MOUTH DIRECTED EVERY 4 HOURS NEEDED FOR WHEEZING fluticasone propion-salmeterol [Advair HFA] 115-21 mcg/actuation HFA aerosol inhaler 2 inh INHALATION DAILY Patient Comments: INHALE TWO PUFFS INTO THE LUNGS TWO TIMES A DAY DIRECTED hydrochlorothiazide 12.5 mg tablet 12.5 mg PO DAILY Patient Comments: TAKE ONE TABLET BY MOUTH ONCE A DAY carvedilol 25 mg tablet 25 mg PO BID Patient Comments: TAKE ONE TABLET BY MOUTH TWICE A DAY; TAKE WITH MEALS atorvastatin 80 mg tablet 80 mg PO QPM clopidogrel 75 mg tablet 75 mg PO DAILY Discharge Instructions Instructions: Acute Coronary Syndrome (DC) Activity:: Activity as Tolerated Equipment/Supplies:: No Equipment Needed Diet:: Low Sodium Discharge Orders Discharge Orders: Discharge Order (Routine); Ordered 10/18/23 Ordered By: Lawrence Jeong DS: Summary Time Spent with Patient providing and/or coordinating discharge services: Greater than 30 minutes Specific discharge activities: Interview/exam of patient, educating patient and/or family about need for transfer and alternative treatment options, coordination of transfer w/ receiving facility and discussion of case w/ accepting provider(s), completion of transfer orders and discharge summary Status at Discharge Functional status at discharge: independent ambulation Overall status at discharge: patient is back to baseline Mental Status: mental status grossly normal Speech and Movement: speech and movement normal Mood: congruent mood Affect: normal affect Quality:SDOH Health Related Social Needs: No Data to Display Exam Narrative Exam Narrative: Dilip is sitting up in bed no acute distress denies any chest pain pressure or shortness of breath. Last night he had sustained ventricular bigeminy and was feeling the palpitations after getting up out of bed and walking to the bathroom and the subsided. He has felt fine ever since then. Lungs are clear to auscultation Heart is regular rate and rhythm no appreciable murmur rub or gallop Abdomen obese soft nontender Extremities without peripheral edema Psych Mental Status: mental status grossly normal Speech and Movement: speech and movement normal Mood: congruent mood Affect: normal affect DS: Data Vitals/I&O Vitals and I&O: Vital Signs Temperature 36.9 C 10/18/23 07:42 Temperature Source Temporal Artery Scan 10/18/23 07:42 Pulse 72 10/18/23 09:48 Pulse 74 10/18/23 09:48 Respiratory Rate 14 10/18/23 09:48 Respiratory Effort Normal, Non-Labored 10/18/23 07:42 Respiratory Depth Normal 10/18/23 07:42 Respiratory Pattern Normal 10/18/23 07:42 Blood Pressure 136/83 10/18/23 09:48 Blood Pressure Mean 100 10/18/23 09:48 Blood Pressure Position Supine 10/17/23 17:36 Pulse Oximetry 97 10/18/23 09:48 Oxygen Delivery Method Room Air 10/18/23 07:42 Oxygen Flow Rate 0 10/18/23 07:42 Pain Level 0 10/18/23 07:42 Intake & Output 10/17/23 10/17/23 10/18/23 11:59 23:59 11:59 Intake Total .666 464.666 / 474.666 431.900 / 431.900 Balance .6 464.666 / 474.666 431.900 / 431.900 Weight 145.15 kg 144 kg Intake: IV 10 174.666 164.666 / 174.666 191.900 / 191.900 Oral 300 / 300 240 / 240 Other: Comment Unmeasured. Pt insists on voiding into normal toilet, did not use hat. Void on med/surg bathroom unmeasured amount. Voiding Methods Toilet Toilet Data Completed and Pending Labs on day of discharge: Labs from last 24 hours 10/18/23 10/18/23 10/18/23 14:40 07:50 05:10 WBC 8.76 RBC 4.81 Hgb 14.3 Hct 41.7 MCV 87 MCH 29.7 MCHC 34.3 RDW 13.3 Plt Count 189 MPV 9.2 Immature Gran % 0.5 Neutrophils % 60.6 Lymphocytes % 28.1 Monocytes % 7.1 Eosinophils % 3.1 Basophils % 0.6 Nucleated RBC % 0.0 Absolute Neutrophils 5.32 Absolute Lymphocytes 2.46 Absolute Monocytes 0.62 Absolute Eosinophils 0.27 Absolute Basophils 0.05 APTT Pending 49.7 H Sodium 141 Potassium 3.7 Chloride 105 Carbon Dioxide 27.5 Anion Gap 8.5 BUN 10 Creatinine 0.8 Est GFR (CKD-EPI 2020) 103.22 Glucose 123 H Calcium 8.5 Troponin I NT-Pro-B Natriuret Pep 656 H 10/18/23 10/17/23 10/17/23 02:05 18:18 12:30 WBC RBC Hgb Hct MCV MCH MCHC RDW Plt Count MPV Immature Gran % Neutrophils % Lymphocytes % Monocytes % Eosinophils % Basophils % Nucleated RBC % Absolute Neutrophils Absolute Lymphocytes Absolute Monocytes Absolute Eosinophils Absolute Basophils APTT 42.2 H 30.6 Sodium Potassium Chloride Carbon Dioxide Anion Gap BUN Creatinine Est GFR (CKD-EPI 2020) Glucose Calcium Troponin I < 50 < 50 NT-Pro-B Natriuret Pep PFSH All Active Problems Diabetes mellitus type 2, controlled, without complications (Acute) Unstable angina (Acute) ST elevation CA (STEMI) (Acute) Oropharyngeal mass (Acute) Hyperglycemia (Acute) Chest pain (Acute) Cerebral thrombosis (Acute 11/29/13) Obesity (Acute 12/21/14) Hypertension (Acute 12/21/14) GERD (gastroesophageal reflux disease) (Acute 12/21/14) Medical History Panic attack Anxiety Snoring Insomnia Surgical History History of oral surgery H/O hand surgery 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 Family History Mother Myocardial infarction Father Diabetes Other Heart disease Social History Smoking/Tobacco Use Status: Current every day Tobacco Type: cigarettes Smoking packs per day: 3 Smoking cigarettes per day: 60.0 Smoking risk assessment performed?: Yes Alcohol Intake: current Alcohol Intake frequency: holidays/special occasions only Drug use: Never Substance use type: does not use Housing: house Do you feel safe at home: Yes Do you feel safe in your relationship?: Yes Time Spent with Patient Time Spent with Patient: <45 minutes Time was spent: preparing to see the patient(eg.review tests), referring, communicating with other health field care coordinator, indepentently interpreting results, counseling the patient and care coordination
--- NOTE | 2023-10-18 11:07 | NUR.NOTE ---
PT rings for nurse and requested to ambulate to the bathroom on med/surge. This nurse educated pt that he is here for unstable angina and he will be off the monitor and we would have to disconnect he from his heprin drip. PT also educated on the dangers of have a vaso vagel episode in the bathroom and staff not being aware. PT v/u of the risks and asked to still use the bathroom on medsurge. PT unhooked from tele/heprin at this time and this nurse ambulated with pt to restroom. No SOB or chest pain noted during this time, VSS. Reapplied tele and restarted heprin drip when he got back to his room. and Nursing Note:
[2023-10-18] MEDS: Insulin Aspart 300 UNITS/3 ML PEN SC (11:59)
[2023-10-18] MEDS: Heparin in 0.45% NaCl 25,000 UNIT/250 ML BAG 19.5 UNIT IV (13:04)
--- NOTE | 2023-10-18 16:58 | NUR.NOTE ---
calls from [facility] reporting missing transfer packet. Packet had been forgotten and brought back with clay transporter. This RN answered all questions [facility] MD had, reviewed all abnormal labs, reviewed all meds/ doses /times given today and yesterday. Answered all questions. MD found fax number to location [phone] and this RN faxed complete packet at this time including ekgs, cumulative summary dc summary, ed notes, hipaa, face sheet. Nursing Note:
== END 2023-10-18 13:34 | disposition short-term general hospital (02) | DRG 282 ==
LOC: ER 14:58 → ICU 17:08
PROVIDERS: Family Medicine; Admitting Provider Internal Medicine; Emergency Provider Emergency Medicine; Visit Provider Internal Medicine
DX: I21.19 ST elevation (STEMI) myocardial infarction involving other coronary artery of inferior wall (principal); F17.210 Nicotine dependence, cigarettes, uncomplicated; Z95.5 Presence of coronary angioplasty implant and graft; K21.9 Gastro-esophageal reflux disease without esophagitis; I10 Essential (primary) hypertension; E66.9 Obesity, unspecified; F41.0 Panic disorder [episodic paroxysmal anxiety]; G47.00 Insomnia, unspecified; E11.9 Type 2 diabetes mellitus without complications; R00.8 Other abnormalities of heart beat; I25.110 Atherosclerotic heart disease of native coronary artery with unstable angina pectoris
CPT/HCPCS: 00123; 36415; 80048; 80053; 93005; 96365; 96366; 99285; 71045; 83735; 83880; 84484; 85025; 85610; 85730; 93010; 99238; 99291; J1644; J1815

== ENCOUNTER 2023-11-12 10:25 | Outpatient (RCR) | payer OTHER, SELFPAY | END 2023-11-16 23:59 | disposition home or self-care (01) | LOC: CR 10:25 | PROVIDERS: Visit Provider Internal Medicine Cardiovascular Disease | DX: I21.3 ST elevation (STEMI) myocardial infarction of unspecified site (principal) | CPT/HCPCS: S9472 ==

== ENCOUNTER 2023-11-17 10:18 | Outpatient (RCR) | payer OTHER, SELFPAY | END 2023-12-17 23:59 | disposition home or self-care (01) | LOC: CR 10:18 | PROVIDERS: Visit Provider Internal Medicine Cardiovascular Disease | DX: I21.3 ST elevation (STEMI) myocardial infarction of unspecified site (principal) | CPT/HCPCS: S9472 ==

== ENCOUNTER 2024-01-30 00:37 | Outpatient (CLI) | payer OTHER, SELFPAY ==
--- NOTE | 2024-01-30 06:45 | DI.MRI_ITS ---
Exam(s) MR LOWER JOINT LT WO EXAM: MR LOWER JOINT LT WO CLINICAL HISTORY: pain,internal derangement lt knee,m23.92. TECHNIQUE: Multiplanar multisequence MRI was performed. COMPARISON: CR XR KNEE LT 3V AP,LAT,DAMION from 06/26/2023 FINDINGS: BONES: There is no fracture or contusion pattern. JOINTS: A small joint effusion is present. Articular cartilage: Patellofemoral joint: Minimal irregularity at the lateral patellar facet. Medial femoral tibial joint: Articular cartilage is unremarkable. Lateral femoral tibial joint: Articular cartilage is unremarkable. LIGAMENTS: Anterior Cruciate: Unremarkable. Posterior Cruciate: Unremarkable. Medial Collateral:Unremarkable. Lateral Collateral ligament complex: Unremarkable. TENDONS: Extensor mechanism: There is somewhat waviness of the patellar tendon but no evidence of tear. Quadr iceps and tendon appears intact. Medial retinaculum: Unremarkable. Lateral retinaculum: Unremarkable. Popliteus: Unremarkable. MENISCI: The medial meniscus is unremarkable. The lateral meniscus shows some high signal in the anterior horn but no discrete focal tear. MUSCLES: Unremarkable. SOFT TISSUES: Mild edema in lateral subcutaneous fat. Tiny Kibry's cyst. Small cyst posterior to th e medial femoral condyle. IMPRESSION: No evidence of ligament tear. Ill-defined high signal anterior horn of lateral meniscus likely degenerative. Small joint effusion. Tiny Kirby's cyst. DATA REPOSITORY: CONTRAST MATERIAL: IV Contrast: Knee mL of Dotarem contrast administered.
== END 2024-01-30 00:57 ==
LOC: DI 00:37
PROVIDERS: Visit Provider Student in an Organized Health Care Education/Training Program
DX: M23.92 Unspecified internal derangement of left knee (principal)
CPT/HCPCS: 73721